=== PATIENT | female | born 1945 | race Caucasian/White ===

== ENCOUNTER → 2020-06-12 15:55 | Outpatient (CLI) | payer MEDICARE, OTHER, SELFPAY ==
--- NOTE | ~2020-06-12 | MM_ITS ---
EXAMINATION: MM screening talha BI w jose HISTORY: Screening TECHNIQUE: Craniocaudal and mediolateral oblique 3-D tomosynthesis images were obtained and synthetic 2-D images were generated. CAD analysis was submitted and interpreted. COMPARISON: Comparison to multiple prior studies sequentially, with oldest reviewed study dated 03/28. BREAST PARENCHYMAL COMPOSITION: There are scattered areas of fibroglandular density. FINDINGS: There is no evidence of suspicious mass, calcification, or architectural distortion to sugg est malignancy in either breast. There has been no suspicious interval change. IMPRESSION: 1. No mammographic evidence of malignancy. 2. Recommend routine screening mammography in one year. BI-RADS Category 1: Negative Reviewed, dictated and finalized at location A.
== END ==
PROVIDERS: PCP Family Medicine; Visit Provider Family Medicine
DX: Z12.31 Encounter for screening mammogram for malignant neoplasm of breast (principal)
CPT/HCPCS: 77063; 77067

== ENCOUNTER 2021-10-31 00:07 | Emergency (ER) | payer MEDICARE, OTHER, SELFPAY ==
--- NOTE | ~2021-10-31 | CT_ITS ---
EXAMINATION: CT abdomen pelvis w con INDICATION: Diarrhea and left lower quadrant pain TECHNIQUE: Computed tomographic images of the abdomen and pelvis were obtained after the administrati on of 100 cc of Omnipaque 350 intravenous contrast. The dose-length product (DLP) was 619.62 mGy-cm. Automated exposure control and iterative reconstruction technique were employed. COMPARISON: 01/17/2012 FINDINGS: Minimal dependent atelectasis is present in the lung bases. The heart size is normal. There is a 6 mm cyst of the left hepatic lobe. The spleen, pancreas, gallbladder, and adrenal glands are n ormal. There is a 7 mm stone left distal ureter which causes moderate left hydroureteronephrosis. The re are multiple nonobstructing stones of the right kidney which measure up to 6 mm. Multiple nonobstr ucting stones of the left kidney measure up to 4 mm. There is calcified atherosclerosis of the aorta and many of the other arteries. No pathologically enlarged abdominal or pelvic lymph nodes are identi fied. There is no free intraperitoneal gas or evidence of bowel obstruction. There is severe lumbar s pondylosis. IMPRESSION: 1. 7 mm stone of the left distal ureter causing moderate left hydroureteronephrosis. 2. Nonobstructing bilateral nephrolithiasis. Reviewed, dictated and finalized at location A. RVISOR HARDBOARD IMPRESSION: 1. 7 mm stone of the left distal ureter causing moderate left hydroureteronephr osis. 2. Nonobstructing bilateral nephrolithiasis.
[2021-10-31 00:06] VITALS: BP 184/91; PULSE 80; RESP 16; TEMP 37.3; O2SAT 100
--- NOTE | 2021-10-31 00:24 | ED.ABDPAIN ---
HPI - Abdominal Pain General Chief Complaint: Abdominal Pain Stated Complaint: LLQ ABD PAIN , DIARRHEA SINCE SEP Time Seen by Provider: 10/31/21 00:09 Source: patient Mode of arrival: EMS Limitations: no limitations History of Present Illness HPI narrative: This is a 75-year-old female that presents to the emergency department for left lower quadrant abdominal pain. Ongoing over the last couple of hours. Reports she has been having trouble with diarrhea since September. Reports her stools have been dark. She is not currently on any blood thinners. She is currently being evaluated by GI for this. Reports history of kidney stones. Denies fever, vomiting, dysuria, hematuria. Related Data Home Medications Medication Instructions Recorded Confirmed rosuvastatin [Crestor] 10 mg PO DAILY 10/31/21 10/31/21 Allergies Allergy/AdvReac Type Severity Reaction Status Date / Time amoxicillin Allergy Unknown Blistery Verified 10/31/21 00:25 Rash, GOOFY clavulanic acid Allergy Unknown Blistery Verified 10/31/21 00:25 Rash, GOOFY fentanyl AdvReac Severe ITCHEY RASH Verified 10/31/21 00:19 Review of Systems Review of Systems: CONSTITUTIONAL: Denies fever GASTROINTESTINAL: Reports abdominal pain, nausea, and diarrhea. Denies vomiting GENITOURINARY: Denies dysuria or hematuria. All systems reviewed & are unremarkable except as noted in HPI and below PMFSH Past Medical History Medical History (Updated 10/31/21 @ 02:35 by Sabrina Hill PA-C) History of hyperlipidemia Social History Social History (Updated 10/31/21 @ 00:26 by Sabrina Hill PA-C) Smoking status: Former smoker Exam Narrative: GENERAL: Elderly, well-nourished, and in no acute distress. HEAD: Normocephalic, atraumatic. CHEST: Clear to auscultation. No respiratory distress. No wheezes rales or rhonchi HEART: Regular rate and rhythm. No murmur heard. Normal peripheral pulses. ABDOMEN: Soft, nondistended, normal active bowel sounds. Tender to palpation in the left lower quadrant, without guarding. No CVA tenderness EXTREMITIES: Normal range of motion. No edema. SKIN: Warm, dry, no rash. NEURO: No focal deficits. Alert and oriented x3. PSYCH: Normal mood and affect Course Consultations Consultation #1: Spoke with Dr. Carreno about patient and work-up. Patient will be sent with Flomax, pain medication and is to follow-up in clinic. Date: 10/31/21 Time: 02:45 Vital Signs Vital signs: Vital Signs Temperature 99.1 F 10/31/21 00:06 Pulse Rate 80 10/31/21 00:06 Respiratory Rate 16 10/31/21 00:06 Blood Pressure 184/91 H 10/31/21 00:06 Pulse Oximetry 100 10/31/21 00:06 Temperature 99.1 F 10/31/21 00:06 Pulse Rate 68 10/31/21 01:28 Respiratory Rate 12 10/31/21 01:28 Blood Pressure 152/73 H 10/31/21 01:28 Pulse Oximetry 99 10/31/21 01:28 MDM - Abdominal Pain MDM Narrative Medical decision making narrative: Patient presents to the emergency department for left lower quadrant abdominal pain. She is afebrile and nontoxic-appearing. Blood pressure elevated on arrival, this down trended with management of pain. CBC is without leukocytosis. Metabolic panel with evidence of mild dehydration. Patient hydrated with IV fluids in the ED. UA without evidence of infection. Does show 21-[address] scan of the abdomen pelvis shows a left distal 7 mm ureteral stone with moderate hydroureteronephrosis. Spoke with Dr. Carreno about patient and work-up. Patient will be sent with Flomax, pain medication and is to follow-up in clinic. Patient is stable and felt appropriate for further outpatient evaluation. She was given warnings to return to the ER Lab Data Attestation: I reviewed the patient's lab results. Result diagrams: 10/31/21 00:25 10/31/21 00:25 Labs: Lab Results 10/31/21 10/31/21 10/31/21 Range/Units 00:25 00:25 00:44 WBC 5.2 (4.5-10.0) K
[2021-10-31 00:33] LABS: Basophils Absolute Auto 0.1 K/mm3 (0.0-0.1); Eosinophils Absolute Auto 0.1 K/mm3 (0-0.3); Hematocrit 39.7 % (37.0-47.0); Hemoglobin 13.3 g/dL (12.0-15.0); Immature Granulocyte Absolute 0.01 K/mm3 (0.00-0.031); Immature Granulocyte Percent A 0.2 % (0-0.5); Lymphocytes Absolute Auto 2.14 K/mm3 (0.9-3.2); Lymphocytes Percent Auto 41.2 % (18.3-44.2); Mean Corpuscular HGB Conc 33.5 g/dl (32-36); Mean Corpuscular Volume 89.4 fl (80-100); Mean Platelet Volume 9.7 fl (7.4-10.4); Monocytes Absolute Auto 0.5 K/mm3 (0.1-0.6); Monocytes Percent Auto 10.4 % (2.6-8.5); Neutrophils Absolute Auto 2.4 K/mm3 (1.3-6.7); Neutrophils Percent Auto 46.2 % (45.5-73.1); Platelet Count Result 196 k/mm3 (150-375); Red Blood Count 4.44 M/mm3 (4.2-5.4); Red Cell Distribution Width 13.8 % (11.5-14.5); White Blood Count 5.2 K/mm3 (4.5-10.0)
[2021-10-31] MEDS: PANTOPRAZOLE SODIUM IV 40 MG VIAL IV PUSH (00:49)
[2021-10-31] MEDS: MORPHINE SULFATE (*CRX) 2 MG/ML INJ IV PUSH (00:49)
[2021-10-31 01:02] LABS: Alanine Aminotransferase 16 U/L (4-35); Albumin Level 3.9 g/dL (3.5-5.1); Alkaline Phosphatase 83 U/L (38-126); Anion Gap 7 mmol/L (8-16); Aspartate Amino Transferase 28 U/L (14-36); Bilirubin,Total 0.3 mg/dL (0.2-1.3); Blood Urea Nitrogen 29 mg/dL (7-17); Carbon Dioxide 25 mmol/L (22-30); Chloride 109 mmol/L (98-107); Estimated CRCL calculation 66 ml/min; Estimated Glomerular Filt Rate > 60; Glucose 106 mg/dL (65-110); Lipase 83 U/L (23-300); Potassium 3.5 mmol/L (3.4-5.0); Sodium 141 mmol/L (137-145)
[2021-10-31 01:04] LABS: Add Urine Microscopic? YES; Appearance Urine Clear (Clear); Bilirubin Urine Negative (Negative); Blood Urine 1+ (Negative); Calcium Oxalate Crystals Urine Present /hpf; Color Urine Straw (Yellow); Glucose Urine UA Negative (Negative); Ketones Urine 1+ mg/dL (Negative); Leukocyte Esterase Ur Negative LEU/UL (Negative); Mucus Urine Rare /lpf; Nitrate Urine Negative (Negative); Protein Urine Negative (Negative); RBC Urine 21-50 /hpf (0-2); Specific Grav Ur 1.014 (1.001-1.035); Squamous Epithelial Cell Urine Rare /hpf (Few); Urobilinogen Urine Negative mg/dL (<2.0); WBC Urine 0-3 /hpf
[2021-10-31] MEDS: SODIUM CHLORIDE 0.9% IV 1,000 ML 999 ML IV CONT (01:26)
[2021-10-31 01:28] VITALS: BP 152/73; PULSE 68; RESP 12; O2SAT 99
[2021-10-31 02:56] VITALS: BP 145/71; PULSE 78; RESP 14; O2SAT 100
== END 2021-10-31 02:57 | disposition home or self-care (01) ==
PROVIDERS: Physician Assistant; Emergency Provider Emergency Medicine; PCP Family Medicine
DX: N13.2 Hydronephrosis with renal and ureteral calculous obstruction (principal); Z87.442 Personal history of urinary calculi; E78.5 Hyperlipidemia, unspecified; Z87.891 Personal history of nicotine dependence
CPT/HCPCS: 36415; 74177; 80053; 81001; 83690; 85025; 96374; 96375; 99284; C9113; J0131; J2270; J7030; Q9967

== ENCOUNTER 2021-11-09 01:58 | Day surgery (SDC) | payer MEDICARE, OTHER, SELFPAY ==
--- NOTE | 2021-11-08 13:24 | WPDANESEPPF ---
Anes - Initial Pre Proc Eval Procedure: Operation Date: 11/09/21 11:00 Proposed Procedures p Cystoscopy, Left Ureteroscopy, Left Stone Extraction, Possible Left Retrograde Pyelogram, Possible Left Stent Placement, - Go Glover MD s Possible Holmium Laser Procedure - Go Glover MD Date/Time: 11/08/21 13:24 Surgeon: Go Glover MD Pre Op Diagnosis: left ureteral stone Patient Data Age: 75 Gender: F Height: Weight: Allergies Allergy/AdvReac Type Severity Reaction Status Date / Time amoxicillin Allergy Unknown Blistery Verified 11/09/21 09:23 Rash, GOOFY clavulanic acid Allergy Unknown Blistery Verified 11/09/21 09:23 Rash, GOOFY fentanyl AdvReac Severe ITCHEY RASH Verified 11/09/21 09:23 Home Medications Medication Instructions Recorded Confirmed Type hydrocodone-acetaminophen 1 tablet PO Q6H PRN #20 tablet 10/31/21 11/09/21 Rx rosuvastatin [Crestor] 10 mg PO HS 10/31/21 11/09/21 History ciprofloxacin HCl 500 mg PO BID 11/08/21 11/09/21 History escitalopram oxalate 20 mg PO DAILY 11/08/21 11/09/21 History tamsulosin 0.4 mg PO HS 11/08/21 11/09/21 History Patient hx anesthesia problems: none Family hx anesthesia problems: none Results Review: All pre-operative results and documents have been reviewed as part of the pre-operative evaluation. [facility] Past Medical History Medical History (Updated 11/01/21 @ 00:00 by Cassy Bautista) History of hyperlipidemia Social History Social History (Updated 10/31/21 @ 00:26 by Sabrina Hill PA-C) Smoking status: Never smoker Living arrangements: with family Spiritual care concerns: No Anes - Eval Final PreProcedure Day of Procedure 11/08/21 13:24 Patient weight: normal Heart: regular rate and rhythm Lungs: clear to auscultation Airway: Mallampati scale class II Neurological: alert and oriented Last oral intake: >/= 8 hours ASA classification: II Emergent: no Anesthetic plan: proceed Anesthesia type and monitoring: general LMA and standard monitoring Results Review: All pre-operative results and documents have been reviewed as part of the pre-operative evaluation. Informed Consent: The patient's anesthetic plan and its attendant risks and benefits were discussed with the patient/family/POA. Questions were solicited and answers provided to the satisfaction of the patient/family/POA.
--- NOTE | 2021-11-08 15:50 | PC.NURSE ---
Addendum entered by Alma Delia Pickard RN 11/08/21 15:54: TAKE CIPRO MORNING OF SURGERY Original Note: Report to the Outpatient Waiting Room, entrance under the green pavilion located off [facility], at time _0800 on date __11/09/21 . OR Time: __1000 . - You and your visitor will be asked a series of questions to screen for COVID 19 for your protection. - A mask is required within the hospital. Preoperative COVID Testing Requirements: No COVID Test needed if: (proof is required; if not received patient will have Rapid Test prior to entry) - Patient has received COVID Vaccine at least 14 days prior to procedure date or - Patient has positive COVID test result within last 90 days of surgery date. COVID Test needed if above criteria is not met If not COVID vaccinated a COVID test must be conducted within 72 hours of surgery and patient is asked to isolate self from time of testing until procedure. You will go to the [facility] for your COVID testing. The [facility] site is located at the corner of [address] [facility]. You will only be called if COVID results are positive and your surgeon may reschedule your elective surgery date. Patients may have clear liquids (water, carbonated beverages, clear teas, apple juice) until 3 hours prior to surgery with a maximum of 20 ounces. - No food from midnight until time of surgery - Infants may have breast milk until 4 hours before surgery, formula 6 hours prior to surgery. - Children will be allowed to drink immediately following surgery. If applicable, please bring a bottle or sippy cup to assist with drinking. Juice, water, soda, and popsicles are readily available. For infants on formula, please bring formula the day of surgery. Pacifiers are allowed. Take the following medications with a SIP of water the morning of surgery: __ESCITALOPRAM Medications to discontinue per physician NONE Date to take last dose Please no make-up, nail djiboutian, hairspray, perfume, deodorant, or body powder the day of surgery. No jewelry (including any body piercings) or valuables the day of surgery, leave them at home. Please take a shower or bath the night before, or the morning of, surgery with an antibacterial soap. Wear comfortable, loose fitting clothing. Children are encouraged to wear pajamas. - Jewelry must be removed prior to entering the operating room. Rings and piercings that are not removed may be cut off. - The hospital will not accept responsibility for valuables. - Please leave all valuables, including medications, at home the day of surgery. If you are going home after surgery, a licensed heavy truck driver must drive you home. - NO public transportation without another adult. - We recommend that an adult stay with you for 24 hours following discharge. - We also recommend that you do not drive, make important decision, drink alcoholic beverages, or take any drugs that were not prescribed by your health care provider for at least 24 hours after your discharge time. For Pediatric surgeries, we recommend two adults accompany the child home (only one inside the building at this time). One visitor will be allowed to accompany the patient into the hospital. Patients visitor will be instructed to remain with patient at all times or leave the building. We will allow the visitor to come back to the postoperative area when patient is ready. Follow any additional instructions given to you from your surgeon. Telephone instructions given to __PATIENT and asked if any additional questions and then verbalized understanding. Patient advised to call surgeon office or pre surgery nurse liaison [phone] if any additional questions.
[2021-11-08 15:55] VITALS: BMI 22.6
[2021-11-09] VITALS (7 sets, daily range): BP systolic 122–183; BP diastolic 66–88; PULSE 55–70; RESP 11–20; TEMP 36.2; O2SAT 100
--- NOTE | ~2021-11-09 | XR_ITS ---
EXAMINATION: XR retrograde pyelo w/stent LT DATE: 11/09/2021 11:46 INDICATION: Left ureteral stone. TECHNIQUE: 3 intraoperative fluoroscopic views of the abdomen and pelvis were obtained. I was not pre sent. Fluoroscopy exposure time was 20 seconds. COMPARISON: CT abdomen and pelvis 10/31/2021 FINDINGS: The left-sided retrograde pyelogram demonstrates moderate hydronephrosis and hydroureter. T he final images demonstrate a left internal ureteral stent in expected position. IMPRESSION: 1. Moderate left hydronephrosis and hydroureter with internal ureteral stent in expected position. Reviewed, dictated and finalized at location A. RAL LABOR
--- NOTE | 2021-11-09 08:28 | ECG_ITS ---
Measurements Intervals [place] Rate: 62 P: 62 DC: 163 QRS: 56 QRSD: 101 T: 61 QT: 457 QTc: 467 Interpretive Statements SINUS RHYTHM NORMAL EKG NO PREVIOUS ECG AVAILABLE FOR COMPARISON Electronically Signed On 11-09-2021 10:36:18 PCA by Mohan Webb M.D.
[2021-11-09] MEDS: LACTATED RINGERS 1,000 ML 30 ML IV CONT (10:02)
--- NOTE | 2021-11-09 10:45 | WPDHPUPDATE1 ---
History and Physical Update Update Date/Time: 11/09/21 10:45 History and Physical has been reviewed, including an updated exam of the patient. There are NO changes in the patient's condition. Risks, benefits, and alternatives have been discussed and questions answered. Patient agrees to proceed with procedure. Proceed with cystoscopy, left retrograde pyelogram, left ureteroscopy with possible holmium laser, stone extraction, stent placement
[2021-11-09] MEDS: ceFAZolin 2 GM/D5W 50 ML 2 GM/50 ML BAG IVPB (11:12)
[2021-11-09] MEDS: LIDOCAINE HCL 2% GEL UROJET 10 ML PKG MUCOUS MEM (11:40)
--- NOTE | 2021-11-09 11:45 | W.PM.PROC2 ---
Procedure Note - Detailed Date of Procedure 11/09/21 Pre-op Diagnosis left ureteral stone Post-op Diagnosis Same Procedure Performed Cystoscopy, left retrograde pyelogram, left ureteroscopy with stone extraction, left ureteral stent placement 4.8 Greenlandic contour Surgeon Go Glover MD Anesthesia General Description of Procedure Patient is taken the operative suite correctly identified. Once anesthesia was obtained she was placed in dorsal lithotomy position and prepped and draped usual sterile fashion. Twenty-two Greenlandic scope was inserted the bladder. There is no tumors noted. Both ureteral orifices normal anatomic position. Left ureteral orifice was cannulated with a guidewire. Rigid ureteral scope was inserted in. The stone was visualized. It was somewhat jagged in appearance but simply with placement of the escape basket it broke up into multiple pieces. We thus retrieve these and sent for analysis. Reinspection of the ureter reveals some urethral irritation. At this point we decided to do a pyelogram and placed a stent. 4.8 Greenlandic contour stent was then placed with the proximal end in the renal pelvis and the distal end in the bladder. 2% viscous lidocaine was inserted urethra. Patient is taken recovery stable condition. She will follow up in 2 weeks for stent removal. Drains Yes Packing No Pathology Yes Complications No immediate complications Condition Stable Disposition PACU
== END 2021-11-09 13:38 | disposition home or self-care (01) ==
PROVIDERS: PCP Family Medicine; Visit Provider Urology
PROC: (CPT 52352; principal; 2021-11-09 11:00)
DX: N13.2 Hydronephrosis with renal and ureteral calculous obstruction (principal); J44.9 Chronic obstructive pulmonary disease, unspecified; E78.00 Pure hypercholesterolemia, unspecified
CPT/HCPCS: 52332; 52352; 74420; 82365; 88300; 93005; A9270; C1769; C1887; C2617; J0690; J1100; J1200; J2405; J2704; J3010; J7120; Q9966

== ENCOUNTER → 2023-05-19 16:19 | Outpatient (CLI) | payer MEDICARE, OTHER, SELFPAY ==
--- NOTE | ~2023-05-19 | XR_ITS ---
Left foot Technique: AP, oblique, and lateral views were obtained. Clinical History: Pain Findings: No acute fracture or dislocation is seen. There is orthopedic fusion hardware transfixing t he second and third PIP joints. There is additional orthopedic plate and screws at the first metatars al with presumed underlying osteotomy. Remaining osseous structures are intact. Remaining joint space s are intact. Soft tissues are unremarkable. Impression: First metatarsal with hardware the presumed underlying osteotomy, visible as a linear lucency. Correl ate with timeframe of the surgery. Fracture is a potential alternative consideration. Orthopedic fusion of the second and third PIP joints. Reviewed, dictated and finalized at location M. Impression: First metatarsal with hardware the presumed underlying osteotomy, visible as a linear lucency. Correlate with timeframe of the surgery. Fracture is a potentia l alternative consideration. Orthopedic fusion of the second and third PIP joints.
== END ==
PROVIDERS: PCP Family Medicine; Visit Provider Nurse Practitioner Family
DX: M79.672 Pain in left foot (principal)
CPT/HCPCS: 73630

== ENCOUNTER → 2023-05-23 09:41 | Outpatient (CLI) | payer MEDICARE, OTHER, SELFPAY ==
--- NOTE | ~2023-05-23 | CT_ITS ---
EXAMINATION: CT LE LT wo con DATE: 05/23/2023 10:06 INDICATION: Left foot pain. TECHNIQUE: Computed tomography (CT) of the left foot was performed without intravenous contrast. Auto mated exposure control and iterative reconstruction technique were employed. The dose-length product was 278.15 mGy-cm. COMPARISON: Left foot radiographs 05/19/2023 FINDINGS: There are changes of bunionectomy. There is a staple in first metatarsal. There is a plate with screws in first metatarsal. No fracture. There are arthrodesis procedures of the second and thir d proximal interphalangeal joints with instrumentation. No lucency to suggest loosening or infection. The instrumentation at third proximal interphalangeal joint extends 1 mm into the base of third dist al phalanx. The heads of the fourth and fifth proximal phalanges are small which may be from prior corrigan rgery or trauma. There is mild osteoarthritis of second tarsometatarsal joint and first metatarsophal angeal joint. There is osteoarthritis of many of the interphalangeal joints. There are enthesophytes at the posterior and plantar aspects of calcaneal tuberosity. IMPRESSION: 1. Polyarticular osteoarthritis. 2. Bunionectomy. 3. Arthrodesis procedures of second and third proximal interphalangeal joints. Note that the instrume ntation at the third proximal interphalangeal joint extends into the base of third distal phalanx. Reviewed, dictated and finalized at location A. IMPRESSION: 1. Polyarticular osteoarthritis. 2. Bunionectomy. 3. Arthrodesis procedures of second and third proximal interphalangeal joints. Note that the instrumentation at the third proximal interphalangeal joint exten ds into the base of third distal phalanx.
== END ==
PROVIDERS: PCP Family Medicine; Visit Provider Nurse Practitioner Family
DX: M19.072 Primary osteoarthritis, left ankle and foot (principal)
CPT/HCPCS: 73700

== ENCOUNTER → 2023-07-03 16:16 | Outpatient (CLI) | payer MEDICARE, OTHER, SELFPAY ==
--- NOTE | ~2023-07-03 | XR_ITS ---
EXAMINATION: XR lumbar spine 2-3V DATE: 07/03/2023 16:48 INDICATION: Low back pain TECHNIQUE: Anteroposterior and lateral views of the lumbar spine, and cone-down lateral view of the l umbosacral junction were obtained. COMPARISON: CT, 10/31/2021 FINDINGS: Bone alignment is normal. There is no fracture. There is severe loss of intervertebral disc space height at L4-5. There is moderate loss of disc space height throughout the remainder of the faustino mbar spine. Small degenerative osteophytes project from the anterior endplates of multiple vertebral bodies. The vertebral body heights are maintained. There is moderate facet joint osteoarthritis of th e lower lumbar spine. Calcified atherosclerosis is noted. IMPRESSION: 1. Severe lumbar spondylosis without acute findings. Reviewed, dictated and finalized at location F.
== END ==
PROVIDERS: PCP Family Medicine; Visit Provider Anesthesiology Pain Medicine
DX: M47.896 Other spondylosis, lumbar region (principal)
CPT/HCPCS: 72100

== ENCOUNTER → 2023-08-28 11:02 | Outpatient (CLI) | payer MEDICARE, OTHER, SELFPAY ==
--- NOTE | ~2023-08-28 | MR_ITS ---
MRI of the lumbar spine Clinical History: Spinal stenosis Technique: Axial T2-weighted images, and sagittal T1-weighted, T2-weighted, and T2 fat-sat images wer e acquired. COMPARISON: 05/01/2011 Findings: There is no fracture or subluxation of the lumbar spine. Vertebral bodies maintain normal h eight and alignment. No suspicious bone marrow signal abnormality seen. At L1-L2, there is no disc bulge or herniation. There is minimal facet arthropathy. No central canal stenosis or neural foraminal narrowing. At L2-L3, there is minimal disc bulge with mild to moderate facet arthropathy. No central canal steno sis. There is mild bilateral neural foraminal narrowing. At L3-L4, there is disc bulge and moderate facet arthropathy. No central canal stenosis. There is mod erate bilateral neural foraminal narrowing. At L4-L5, there is diffuse disc bulge, essentially the right paracentral to right foraminal region, w ith moderate to advanced facet arthropathy. There is mild central canal stenosis. There is severe meena ateral neural foraminal compromise, left worse than right. At L5-S1, there is diffuse disc bulge and moderate to advanced facet arthropathy. No central canal st enosis. There is severe bilateral neural foraminal, or mass. Paravertebral soft tissues are unremarkable. Impression: Severe degenerative spondylosis at L4-L5 and L5-S1, as detailed above. [id number] degenerative spondylosis of the upper lumbar spine. Reviewed, dictated and finalized at [facility]. ER HELPER Impression: Severe degenerative spondylosis at L4-L5 and L5-S1, as detailed above. [id number] degenerative spondylosis of the upper lumbar spine.
== END ==
PROVIDERS: PCP Family Medicine; Visit Provider Family Medicine
DX: R20.2 Paresthesia of skin (principal); M48.061 Spinal stenosis, lumbar region without neurogenic claudication; I10 Essential (primary) hypertension; M47.896 Other spondylosis, lumbar region; M47.897 Other spondylosis, lumbosacral region
CPT/HCPCS: 72148

== ENCOUNTER → 2023-10-28 09:05 | Outpatient (CLI) | payer MEDICARE, OTHER, SELFPAY ==
--- NOTE | ~2023-10-28 | XR_ITS ---
EXAMINATION: XR thoracic spine 3V DATE: 10/28/2023 09:21 INDICATION: Thoracic back pain TECHNIQUE: AP, lateral and lateral swimmer's views of the thoracic spine were obtained. COMPARISON: None. FINDINGS: Bone alignment is normal. There is no fracture. There is moderate loss of intervertebral di sc space height throughout the thoracic spine. Vertebral body heights are maintained. Small degenerat ken osteophytes project from the anterior endplates of multiple vertebral bodies. IMPRESSION: 1. Moderate to severe thoracic spondylosis without acute findings. Reviewed, dictated and finalized at location L. ER HELPER
== END ==
PROVIDERS: PCP Family Medicine; Visit Provider Nurse Practitioner Family
DX: M43.04 Spondylolysis, thoracic region (principal); M54.6 Pain in thoracic spine
CPT/HCPCS: 72072

== ENCOUNTER 2024-10-15 08:18 | Outpatient (CLI) | payer MEDICARE, OTHER, SELFPAY ==
--- NOTE | ~2024-10-15 | XR_ITS ---
EXAMINATION: XR abdomen/kub 1V DATE: 10/15/2024 08:43 INDICATION: Possible kidney stone TECHNIQUE: A supine view of the abdomen on 2 radiographs was obtained. COMPARISON: 04/19/2019 FINDINGS: 6 mm stone projecting over the lower pole of the left kidney, 4 mm stone projecting over the mid left kidney and 3 mm stone projecting over the upper pole the left kidney. There are few smaller densitie s projecting over the lower poles of both kidneys more equivocal for additional stones versus debris within the fecal stream. Chronic phleboliths in the pelvis. Large bone island projecting over the rig ht iliac wing. Normal bowel gas pattern. Lung bases are clear. Heart size is normal. Severe lower lum bar spondylosis. IMPRESSION: 1. Nephrolithiasis with 3 stones at the left kidney measuring between 3 10 6 mm and a few additional possible smaller stones at the lower poles of both kidneys. Reviewed, dictated and finalized at location B. TENANCE SERVICE TECHNICIAN IMPRESSION: 1. Nephrolithiasis with 3 stones at the left kidney measuring between 3 10 6 mm and a few additional possible smaller stones at the lower poles of both kidney s.
== END 2024-10-15 08:19 | disposition home or self-care (01) ==
LOC: MICIMG 08:21
PROVIDERS: PCP Family Medicine; Visit Provider Urology
DX: N20.0 Calculus of kidney (principal)
CPT/HCPCS: 74018

== ENCOUNTER 2024-10-18 01:10 | Observation (INO) | payer MEDICARE, OTHER, SELFPAY ==
[2024-10-18] VITALS (14 sets, daily range): BP systolic 129–173; BP diastolic 54–84; PULSE 67–102; RESP 12–20; TEMP 36.3–37.5; O2SAT 91–100; BMI 33.5
--- NOTE | ~2024-10-18 | XR_ITS ---
EXAMINATION: XR retrograde pyelo w/stent RT DATE: 10/18/2024 13:34 INDICATION: Right ureteral stone extraction TECHNIQUE: 48 fluoroscopic images of the abdomen and pelvis were obtained during procedure performed by Dr. Franklin. Radiologist was not present for the imaging or procedure. The amount of fluoroscopy t alana used during this procedure was 0.4 minutes. COMPARISON: CT dated 10/18/2024 FINDINGS: The mid right ureteral stone seen on prior CT is unable be identified on the activities director scouting fluoroscopic image s. Subsequent images demonstrate cannulation and retrograde contrast injection into the right ureter and renal collecting system which appear normal with no filling defects or strictures. A mobile gas-f illed which changes in size and morphology can be seen extending through the ureter during the course of the injection. Final images demonstrate placement of a right internal ureteral stent with loops f ormed in upper pole calyx of the right kidney and in the bladder. IMPRESSION: 1. Placement of a right internal ureteral stent in expected position. 2. The stone previously seen in the mid right ureter is unable be identified on the activities director scouting imaging or on the final images and may have either passed or been extracted. Correlate with procedure note for f urther detail. Reviewed, dictated and finalized at location A. EMIC VICE PRESIDENT IMPRESSION: 1. Placement of a right internal ureteral stent in expected position. 2. The stone previously seen in the mid right ureter is unable be identified on the activities director scouting imaging or on the final images and may have either passed or been ex tracted. Correlate with procedure note for further detail.
--- NOTE | ~2024-10-18 | CT_ITS ---
Non-contrast CT scan of the Abdomen and Pelvis Clinical indication: Kidney stone Technique: 2.5 mm axial scans were obtained through the abdomen and pelvis without intravenous or or al contrast. Dose reduction technique was used on this scan by utilizing automated exposure control a nd iterative reconstruction technique. The dose-length product (DLP) was 380.32 mGy-cm. Findings: Images through the lung bases reveal no abnormalities. There is an 8-9 mm stone at the mid right ureter (axial images [id number]), with moderate right hydrourete ronephrosis to this level. There are multiple additional bilateral nonobstructing renal stones presen t, measuring up to 8 mm in greatest diameter. No left ureteral stone or left hydronephrosis. The liver, spleen, pancreas, gallbladder, and adrenals appear normal. There is no aortic aneurysm. There is no evidence of bowel obstruction. Sigmoid diverticulosis noted. Images through the pelvis were performed. There is no evidence of ascites or lymphadenopathy. Urinary bladder unremarkable. No adnexal mass seen. Impression: 8-9 mm mid right ureteral stone with moderate right hydroureteronephrosis. Additional bilateral nonobstructing renal stones, as above. Reviewed, dictated and finalized at [facility]. L REGULATOR Impression: 8-9 mm mid right ureteral stone with moderate right hydroureteronephrosis. Additional bilateral nonobstructing renal stones, as above.
--- OUTSIDE RECORDS SUMMARY | 2024-10-18 01:14 | XMS_ITS ---
Author Organization [facility] Address [address] [place] [address] Care Team Providers Care Senior Warehouse Clerk Name Role Phone Jimmie Bingham Primary Care Provider UnavailDr. 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 Assessments Encounter Date Diagnosis (ICD Code) Assessment Notes Treatment Notes Treatment Clinical Notes Section Notes 07/17/2023 Other hereditary and idiopathic neuropathies (ICD-10 - 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) Plan Of Treatment Medication Medication Name Sig Start Date Stop Date Notes GABAPENTIN 300 mg 1 cap(s) tid with me als x 1 week, then 1 cap qid (tid with meals and qHS) if tolerated orally as directed for 30 days Progress Notes * Tasia RAYADOB: (77 yo F)Acc No.[id number]:07/17/2023 Patient: Max Tasia pryor :1945 A ge:77 Y S ex:Female Address:[address], [place] [address] * Refills Refill gabapentin capsule, 300 mg, orally, 120, 1 cap(s) tid with meals x 1 week, then 1 cap qid (tid with meals and qHS) if tolerated, as directed, 30 days, Refills=2 * true * Date: Generated for Yoni hathaway/Jennifer/Dieteritting on: 0 10/18/2024 01:14 AM ENGINEERING DIRECTOR
--- OUTSIDE RECORDS SUMMARY | 2024-10-18 01:14 | XMS_ITS | Clinical Summary ---
Author Organization [facility] Address [address] [place] [address] Care Team Providers Care Stadium Manager Name Role Phone Raphael Summers MD Primary Care Provider Allergies Active Allergy Reactions Criticality Noted Date Comments Amoxicillin-Pot Clavulanate Unknown 03/30/20 12 Fentanyl Unknown 03/30/2012 Medications escitalopram (LEXAPRO) 20 MG tablet Take 20 mg by mouth every morning. Active fluticasone propionate (FLONASE) 50 MCG/ACT nasal spray 1-2 sprays by Nasal route. Active LORazepam (ATIVAN) 0.5 MG tablet Take 0.5 mg by mouth. Active rosuvastatin (CRESTOR) 5 MG tablet Take 5 mg by mouth daily. Active aspirin EC 81 MG tablet Take 1 tablet by mouth daily. Active tamsulosin (FLOMAX) 0.4 MG Cap Take 0.4 mg by mouth nightly at bedtime. 2 Active donepezil (ARICEPT) 10 MG TabIndications:Cog nitive communication deficit,MCI (mild cognitive impairment) Take 1 tablet (10 mg total) by mouth nightly at bedtime. 90 tablet 1 3 Active gabapentin (NEURONTIN) 300 MG capsule Take 1 capsule (300 mg total) by mouth 3 (three) times daily. Active nortriptyline (PAMELOR) 10 MG capsule Take 2 capsules (20 mg total) by mouth nightly at bedtime. Active tamsulosin (FLOMAX) 0.4 MG Cap Take 1 capsule (0.4 mg total) by mouth daily for 7 days. 7 capsule 5 10/21/19 25 Active oxyCODONE-acetamin ophen (PERCOCET) 5-325 MG tabletIndications: Acute Pain < 3 Day Supply Take 1-2 tablets by mouth every 6 (six) hours as needed. Indications: Acute Pain < 3 Day Supply 15 tablet 5 10/17/19 25 ondansetron (ZOFRAN-ODT) 4 MG disintegrating tablet Take 1 tablet (4 mg total) by mouth every 8 (eight) hours as needed for Nausea. 12 tablet 5 10/17/19 25 Active Problems Problem Noted Date Diagnosed Date Peripheral neuropathy 12/03/2014 Overview (09/22/2022): Note: L4- L5 distribution and peronial nerve Date Onset: 11/2014 Spider veins 11/15/2014 Overview (09/22/2022): Date Onset: 11/15/2014 Hyperlipidemia 05/08/2012 Overview (09/22/2022): Date Onset: 05/08/2012 Allergic rhinitis 04/01/2012 Asthma ([facility]/HCC) 04/01/2012 Pain in joint 03/30/2012 Calculus of kidney 03/10/2012 Overview (09/22/2022): Note: bilateral nephrolithiasis Date Onset: 01/18/2012 Chronic obstructive pulmonary disease ([facility]/HCC H HS/HCC) 03/10/2012 Panic disorder (episodic paroxysmal anxiety) 11/2011 Stiffness of joint 03/10/2012 Encounters Date Type Department Care Team Description 10/13/2024 10:58 PM BUSINESS ADVISOR - 10/14/2024 1:27 AM [facility] Emergency [facility] Emergency Room [address] [place] [id number] Johny Pinon MD Flank Pain Discharge Disposition: Home or Self Care (Routine Discharge) 10/13/2024 Travel 10/05/2024 2:53 PM BUSINESS ADVISOR - 10/05/2024 11:59 PM BUSINESS ADVISOR Hospital Encounter [facility] [address] [place] [address], [place] [address] Raphael Summers MD Discharge Disposition: Home or Self Care (Routine Discharge) 10/05/2024 Travel from Last 3 Months Social History Tobacco Use Types Packs/Day Years Used Date Smoking Tobacco: Never Smokeless Tobacco: Never Tobacco Cessation:Counseling Given: No Alcohol Use Standard Drinks/Week Comments Not Currently 0 (1 standard drink = 0.6 oz pur e alcohol) PHQ-2 Answer Date Recorded Patient Health Questionnaire-2 Score 0 09/23/2022 Comments Unknown Sex and Gender Information Value Date Recorded Sex Assigned at Female 10/13/2024 11:27 PM BUSINESS ADVISOR Legal Sex Female 8:08 AM CDT Gender Identity Not on file Sexual Orientation Not on file Last Filed Vital Signs Vital Sign Reading Time Taken Comments Blood Pressure 186/86 10/14/2024 12:00 AM BUSINESS ADVISOR Pulse 78 10/13/2024 11:02 PM BUSINESS ADVISOR Temperature 37 C (98.6 F) 10/13/2024 11:02 PM BUSINESS ADVISOR Respiratory Rate 20 10/13/2024 11:02 PM BUSINESS ADVISOR Oxygen Saturation 99% 10/14/2024 12:00 AM BUSINESS ADVISOR Inhaled Oxygen Concentration - - Weight 72.6 kg (160 lb) 10/13/2024 11:02 PM BUSINESS ADVISOR Height 167.6 cm (5' 6 ) 10/13/2024 11:02 PM BUSINESS ADVISOR Body Mass Index 25.82 10/13/2024 11:02 PM BUSINESS ADVISOR Plan of Treatment Upcoming Encounters Date Type Department Care Team (Late st Contact Info) Description 02/14/2025 2:00 PM CDT Office Visit [facility] - [address], [address] [place] [address] Jack Alvares MD [address] [place] [address] Health Maintenance Due Date Last Done Comments Hepatitis C 12/08/1963 Annual Medicare Wellness Visit 12/08/2012 Pneumococcal Vaccine: 65+ Years (3 of 3 - PPSV23 or PCV20) 02/20/2017 02/21/2016, 12/18/2011 RSV Immunization or 60+ Years (1 - 1-dose 75+ series) 12/08/2022 COVID-19 Vaccine (3 - season) 2024 12/23/2020, 12/02/2020 Influenza Adult (#1) 2024 06/22/2019, 06/15/2018, 06/13/2017, Additional history exists PHQ-2 (Physician [place]) 09/08/2024 DTaP, Tdap and Td Vaccines (3 - Td or Tdap) 10/26/2029 10/26/2019, 05/15/2016, 11/26/2001 Zoster Vaccines Completed 03/01/2021, 10/26/2019 Dexa Scan (General) Completed 10/05/2024, 3 Meningococcal B Vaccine Aged Out No l onger eligible based on patient's age to complete this topic Meningococcal Vaccine Aged Out No belinda mell eligible based on patient's age to complete this topic RSV Immunizations Under 20 Months Aged Out No longer eligible based on patient's age to complete this topic Procedures Procedure Name Priority Date/Time Associated Diagnosis Comments URINE BACTERIA CULTURE STAT 10/14/2024 12:42 AM BUSINESS ADVISOR URINALYSIS, AUTO, COMPLETE STAT 10/14/2024 12:[address] ABD+PEL KIDNEY STONE STAT 10/13/2024 11:49 PM BUSINESS ADVISOR LIPASE STAT 10/13/2024 11:10 PM BUSINESS ADVISOR COMPREHENSIVE METABOLIC PANEL STAT 10/13/2024 11:10 PM BUSINESS ADVISOR CBC W/DIFF AUTOMATED STAT 10/13/2024 11:10 PM BUSINESS ADVISOR BONE DENSITY/DEXA Routine 10/05/2024 3:0 7 PM BUSINESS ADVISOR Osteoporosis, unspecified osteoporosis type, unspecified pathological fracture presence Asymptomatic menopausal state from Last 3 Months Results * CULTURE URINE (10/14/2024 12:42 AM BUSINESS ADVISOR) SPEC DESCRIPTION URINE CLEAN CATCH 10/14/2024 12:41 AM [facility] SPECIAL REQUESTS NO SPECIAL REQUEST 10/14/2024 12:41 AM [facility] CULTURE RESULT NO GROWTH 2 DAYS 10/16/2024 6:[address] [facility] URINE SPECIMEN OBTAINED BY CLEAN CATCH PROCEDURE / Unknown 10/14/2024 12:42 AM BUSINESS ADVISOR 10/14/2024 12:52 AM BUSINESS ADVISOR Johny Pinon MD MICROBIOLOGY - GENERAL BARBARA BIRD Final Result [facility] [address] [place] [address], [place] [phone] [facility] [address] [place] [address], [place] [phone] * (ABNORMAL) URINALYSIS, AUTO, COMPLETE (10/14/2024 12:42 AM BUSINESS ADVISOR) COLOR (U) YELLOW 10/14/2024 1:03 AM [facility] TRANSPARENCY CLOUDY 10/14/2024 1:03 AM [facility] SPECIFIC GRAVITY (U) 1.020 1.000 - 1.030 10/14/2024 1:03 AM [facility] U PH 7.5 5.0 - 9.0 10/14/2024 1:03 AM [facility] LEUKOCYTES (U) 1+(A) NEGATIVE 10/14/2024 1:03 AM [facility] NITRITES NEGATIVE NEGATIVE 10/14/2024 1:03 AM [facility] PROTEIN RANDOM (U) NEGATIVE NEGATIVE 10/14/2024 1:03 AM [facility] GLUCOSE (U) NEGATIVE NEGATIVE 10/14/2024 1:03 AM [facility] KETONES MG/DL (U) TRACE(A) NEGATIVE 10/14/2024 1:03 AM [facility] BILIRUBIN (U) NEGATIVE NEGATIVE 10/14/2024 1:03 AM [facility] BLOOD (U) 3+(A) NEGATIVE 10/14/2024 1:03 AM [facility] WBC/HPF 5-10 0 - 5 /HPF 10/14/2024 1:03 AM [facility] RBC/HPF 50-100 0 - 5 /HPF 10/14/2024 1:03 AM [facility] EPI/HPF FEW /HPF 10/14/2024 1:03 AM [facility] URINE SPECIMEN OBTAINED BY CLEAN CATCH PROCEDURE / Unknown 10/14/2024 12:42 AM BUSINESS ADVISOR us Johny Pinon MD URINE ORDERABLES Final Resu lt [facility] [address] [place] [address], [place] [phone] * CT ABD+PEL KIDNEY STONE (10/13/2024 11:49 PM BUSINESS ADVISOR) Anatomical Region Laterality Modality Abdomen Computed Tomogra phy 10/13/2024 11:5 0 PM BUSINESS ADVISOR Impressions 10/14/2024 12:01 AM BUSINESS ADVISOR IMPRESSION: 1. Mild right hydronephrosis with right perinephric stranding and a 6 mm stone in the proximal right ureter, suggestive of obstructive uropathy. 2. Multifocal nonobstructing stones involving the bilateral kidneys. 3. Sub-6 mm pulmonary nodule in the right lower lobe. Current Jo Society guidelines recommend no routine follow-up for patient's at low risk of lung cancer. Optional CT at 12 months for patient's at high risk. Referred By: Interpreted By: Patrick Crouch MD, 10/13/2024 11:50 PM Narrative 10/14/2024 12:01 AM BUSINESS ADVISOR [facility] [address] [place] [address] EXAMINATION: CT ABDOMEN/PELVIS WITHOUT CONTRAST INDICATION: right flank pain x 1 day COMPARISON: 07/24/2022 TECHNIQUE: Computed tomography of the abdomen, and pelvis was performed without administration of intravenous contrast. Sagittal and coronal reconstructions. Radiation dose reduction technique(s) were used. FINDINGS: Lower Chest: There are atelectatic changes in the lung bases. There is a sub-6 mm slightly linear pulmonary nodule in the right lung base (image 13) No cardiomegaly or pericardial effusion. Small hiatal hernia. Upper abdominal organs: There is a stable small cyst in the liver. No specific imaging follow-up is recommended. There is no splenomegaly. There is no peripancreatic inflammation. There is no definite cholelithiasis. There are no adrenal masses. There is mild right hydronephrosis with right perinephric stranding and a 6 mm stone in the proximal right ureter. There are multifocal nonobstructing stones involving the bilateral kidneys. Vascular: The abdominal aorta is normal in caliber. Lymph nodes: No retroperitoneal, mesenteric, or inguinal lymphadenopathy. Gastrointestinal: No bowel obstruction or bowel wall thickening. Colonic diverticulosis. The appendix is normal. Miscellaneous: No free intraperitoneal air or ascites. Pelvis: No free pelvic fluid. The urinary bladder is normal. The uterus and adnexa are within normal limits for noncontrast CT. Musculoskeletal: No acute osseous abnormality or destructive bone lesions. Procedure Note Patrick Crouch MD - 10/14/2024 [facility] [address] [place] [id number] EXAMINATION: CT ABDOMEN/PELVIS WITHOUT CONTRAST INDICATION: right flank pain x 1 day COMPARISON: 07/24/2022 TECHNIQUE: Computed tomography of the abdomen, and pelvis was performedwithout administration of intravenous contrast. Sagittal and coronalreconstructions. Radiation dose reduction technique(s) were used. FINDINGS: Lower Chest: There are atelectatic changes in the lung bases. There is asub-6 mm slightly linear pulmonary nodule in the right lung base ([id number]) No cardiomegaly or pericardial effusion. Small hiatal hernia. Upper abdominal organs: There is a stable small cyst in the liver. Nospecific imaging follow-up is recommended. There is no splenomegaly. Thereis no peripancreatic inflammation. There is no definite cholelithiasis.There are no adrenal masses. There is mild right hydronephrosis with rightperinephric stranding and a 6 mm stone in the proximal right ureter.There are multifocal nonobstructing stones involving the bilateralkidneys. Vascular: The abdominal aorta is normal in caliber. Lymph nodes: No retroperitoneal, mesenteric, or inguinallymphadenopathy. Gastrointestinal: No bowel obstruction or bowel wall thickening. Colonicdiverticulosis. The appendix is normal. Miscellaneous: No free intraperitoneal air or ascites. Pelvis: No free pelvic fluid. The urinary bladder is normal. The uterusand adnexa are within normal limits for noncontrast CT. Musculoskeletal: No acute osseous abnormality or destructive bonelesions. IMPRESSION: 1. Mild right hydronephrosis with right perinephric stranding and a 6 mmstone in the proximal right ureter, suggestive of obstructive uropathy. 2. Multifocal nonobstructing stones involving the bilateral kidneys. 3. Sub-6 mm pulmonary nodule in the right lower lobe. Current [facility] guidelines recommend no [facility]. [facility] Referred By: Interpreted By: Patrick Crouch MD, 10/13/2024 11:50 PM Johny Pinon MD CT Final Resul t * (ABNORMAL) COMPREHENSIVE METABOLIC PANEL (10/13/2024 11:10 PM BUSINESS ADVISOR) GLUCOSE 99 70 - 99 MG/DL 10/13/2024 11:36 PM BUSINESS ADVISOR [facility] BUN 26(H) 7 - 18 MG/DL 10/13/2024 11:36 PM [facility] CREATININE S/P/B 0.93 0.55 - 1.02 MG/DL 10/13/2024 11:36 PM [facility] SODIUM S/P/B 141 136 - 145 MMOL/L 10/13/2024 11:36 PM [facility] POTASSIUM S/P/B 3.7 3.5 - 5.1 MMOL/L 10/13/2024 11:36 PM [facility] CHLORIDE S/P/B 105 100 - 108 MMOL/L 10/13/2024 11:36 PM [facility] CO2 25.7 21 - 32 MMOL/L 10/13/2024 11:36 PM [facility] CALCIUM S/P/B 9.1 8.5 - 10.1 MG/DL 10/13/2024 11:36 PM [facility] BILIRUBIN TOTAL S/P/B 0.4 0.2 - 1.2 MG/DL 10/13/2024 11:36 PM [facility] TOTAL PROTEIN S/P/B 6.3(L) 6.4 - 8.2 G/DL 10/13/2024 11:36 PM [facility] ALBUMIN S/P/B 3.5 3.4 - 5.0 G/DL 10/13/2024 11:36 PM [facility] AST 23 15 - 37 U/L 10/13/2024 11:36 PM [facility] ALT 30 14 - 55 U/L 10/13/2024 11:36 PM [facility] ALKALINE PHOSPHATASE S/P/B 65 50 - 136 U/L 10/13/2024 11:36 PM [facility] ANION GAP 10.3 5 - 15 MMOL/L 10/13/2024 11:36 PM [facility] BUN CREATININE RATIO 28.0(H) 6 - 26 10/13/2024 11:36 PM [facility] A/G RATIO 1.2 1.0 - 2.0 RATIO 10/13/2024 11:36 PM [facility] GFR ESTIMATE 64(L) >90 ML/MIN/1.7 3 M2 10/13/2024 11:36 PM [facility] Comment: NOTE: eGFR is not calculated for patients <18 years of age. This is an estimated GFR calculation using the new CKD EPI creatinine equation without race and so does not require a correction factor for race. This estimated GFR should not be used for calculating drug doses. 10/13/2024 11:1 0 PM BUSINESS ADVISOR us Johny Pinon MD LABORATORY Final Resul t [facility] [address] [place] [address], [place] [phone] * (ABNORMAL) CBC W/DIFF AUTOMATED (10/13/2024 11:10 PM BUSINESS ADVISOR) WBC 7.10 4.4 - 11.0 x10'3/uL 10/13/2024 11:19 PM [facility] RBC 4.78 4.50 - 5.10 x10'6/uL 10/13/2024 11:19 PM [facility] HGB 14.1 12.3 - 15.3 G/DL 10/13/2024 11:19 PM [facility] HCT 42.6 35.9 - 44.6 % 10/13/2024 11:19 PM [facility] MCV 89.1 80.0 - 96.0 FL 10/13/2024 11:19 PM [facility] MCH 29.5 25.3 - 30.9 PG 10/13/2024 11:19 PM [facility] MCHC 33.1 31.0 - 34.1 G/DL 10/13/2024 11:19 PM [facility] RDW 13.7 12.4 - 15.1 % 10/13/2024 11:19 PM [facility] PLT 233 151 - 353 x10'3/uL 10/13/2024 11:19 PM [facility] MPV 8.8(L) 9.6 - 12.0 FL 10/13/2024 11:19 PM [facility] RBC MORPHOLOGY NORMAL 10/13/2024 11:19 PM [facility] PLT MORPH. NORMAL 10/13/2024 11:19 PM [facility] WBC MORPHOLOGY NORMAL 10/13/2024 11:19 PM [facility] LYMPHOCYTES % 23.2 15.8 - 45.0 % 10/13/2024 11:19 PM [facility] NEUTROPHILS % 67.5 42.1 - 71.9 % 10/13/2024 11:19 PM [facility] MONOCYTES % 6.9 5.7 - 12.5 % 10/13/2024 11:19 PM [facility] EOSINOPHILS 1.4 0.0 - 5.6 % 10/13/2024 11:19 PM [facility] BASOPHILS 0.7 0.0 - 1.3 % 10/13/2024 11:19 PM [facility] ABS. NEUTROPHILS 4.79 1.40 - 6.00 x10'3/uL 10/13/2024 11:19 PM [facility] IMMATURE GRANS % 0.3 0.0 - 0.5 % 10/13/2024 11:19 PM BUSINESS ADVISOR [facility] ABS. LYMPHOCYTES 1.65 0.80 - 4.70 x10'3/uL 10/13/2024 11:19 PM BUSINESS ADVISOR [facility] 10/13/2024 11:1 0 PM BUSINESS ADVISOR us Johny Pinon MD LABORATORY Final Resul t Performing Organization Address [facility] de Phone Number [facility] [address] [place] [address], [place] [phone] * LIPASE (10/13/2024 11:10 PM BUSINESS ADVISOR) LIPASE 35 16 - 77 UNITS/L 10/13/2024 11:36 PM BUSINESS ADVISOR [facility] 10/13/2024 11:1 0 PM BUSINESS ADVISOR us Johny Pinon MD LABORATORY Final Resul t Performing Organization Address [facility] de Phone Number [facility] [address] [place] [address], [place] [phone] * BONE DENSITY/DEXA (10/05/2024 3:07 PM BUSINESS ADVISOR) Anatomical Region Laterality Modality Bone Bone Density 10/05/2024 3:09 PM BUSINESS ADVISOR Impressions 10/05/2024 3:11 PM BUSINESS ADVISOR IMPRESSION: WHO Classification: osteopenia. Overall increased bone mineral density of the lumbar spine and left femoral neck compared to prior study. FRAX Score 10-year fracture risk: Major Osteoporotic Fracture: 12% Hip Fracture: 2.8% Ordered By: RAPHAEL SUMMERS Interpreted By: Micah Foley MD, 10/05/2024 3:09 PM Narrative 10/05/2024 3:11 PM BUSINESS ADVISOR [facility] [address] [place] [address] Examination: Bone Density Axial Exam Date/Time: 10/05/2024 2:57 PM Reason For Exam: Postmenopausal screening. Comparison DEXA: 10/11/2022. Findings: DEXA bone densitometry The bone mineral density (BMD) was determined by dual-energy x-ray absorptiometry, the results are as follows: AP Lumbar Spine L2 through L4 BMD Patient (GM/SQCM): 0.887 T-Score (Standard deviations from young adult peak bone density): -1.7 (Previous T score: -2.2) Left femoral neck: BMD Patient (GM/SQCM): 0.669 T-Score (Standard deviations from young adult peak bone density): -1.6 (Previous T score: -1.9) Total left femur: BMD Patient (GM/SQCM): 0.822 T-Score (Standard deviations from young adult peak bone density): -1.0 (Previous T score: not available) Right femoral neck: BMD Patient (GM/SQCM): 0.688 T-Score (Standard deviations from young adult peak bone density): -1.5 (Previous T score: not available) Total right femur: BMD Patient (GM/SQCM): 0.789 T-Score (Standard deviations from young adult peak bone density): -1.3 (Previous T score: not available) Recommendations: All patients should ensure an adequate intake of dietary calcium and vitamin D. The NOF recommend adults under the age of 50 need 1000 mg of calcium and 400-800 IU of vitamin D daily. Effective therapy for the prevention and treatment of osteoporosis include biphosphonates. Follow-up: People with diagnosed cases of osteoporosis or at high risk for fracture should have regular bone mineral density test. For patients eligible for Medicare, routine testing is allowed once every 2 years. Testing frequency can be increased to one year for patients who have rapidly progressing disease, those who are receiving or discontinuing medical therapy to restore bone mass, or have additional risk factors. Procedure Note Micah Foley MD - 10/05/2024 [facility] [address] [place] [address] Examination: Bone Density Axial Exam Date/Time: 10/05/2024 2:57 PM Reason For Exam: Postmenopausal screening. Comparison DEXA: 10/11/2022. Findings: DEXA bone densitometry The bone mineral density (BMD) was determined bydual-energy x-ray absorptiometry, the results are as follows: AP Lumbar Spine L2 through L4 BMD Patient (GM/SQCM): 0.887 T-Score (Standard deviations from young adult peak bonedensity): -1.7 (Previous T score: -2.2) Left femoral neck: BMD Patient (GM/SQCM): 0.669 T-Score (Standard deviations from young adult peak bonedensity): -1.6 (Previous T score: -1.9) Total left femur: BMD Patient (GM/SQCM): 0.822 T-Score (Standard deviations from young adult peak bonedensity): -1.0 (Previous T score: not available) Right femoral neck: BMD Patient (GM/SQCM): 0.688 T-Score (Standard deviations from young adult peak bonedensity): -1.5 (Previous T score: not available) Total right femur: BMD Patient (GM/SQCM): 0.789 T-Score (Standard deviations from young adult peak bonedensity): -1.3 (Previous T score: not available) Recommendations: All patients should ensure an adequate intake of dietary calcium andvitamin D. The NOF recommend adults under the age of 50 need 1000 mg ofcalcium and 400-800 IU of vitamin D daily. Effective therapy for theprevention and treatment of osteoporosis include biphosphonates. Follow-up: People with diagnosed cases of osteoporosis or at high risk for fractureshould have regular bone mineral density test. For patients eligible forMedicare, routine testing is allowed once every 2 years. Testing frequencycan be increased to one year for patients who have rapidly progressingdisease, those who are receiving or discontinuing medical therapy torestore bone mass, or have additional risk factors. IMPRESSION: WHO Classification: osteopenia. Overall increased bone mineral density ofthe lumbar spine and left femoral neck compared to prior study. FRAX Score 10-year fracture risk: Major Osteoporotic Fracture: 12% Hip Fracture: 2.8% Ordered By: RAPHAEL SUMMERS Interpreted By: Micah Foley MD, 10/05/2024 3:09 PM Raphael Summers MD DEXA Final Result from Last 3 Months Insurance MEDICARE [facility] Advance Directives Documents on File Type Date Recorded Patient Net Programmer Analyst Expl anation Advance Directives and Living Will 11/17/2014 12:00 AM ADVANCED DIRECTIVES Advance Directives and Living Will 11/11/2014 12:00 AM ADVANCED DIRECTIVES Advance Directives and Living Will 08/18/2014 12:00 AM ADVANCED DIRECTIVES Advance Directives and Living Will 05/25/2014 12:00 AM ADVANCED DIRECTIVES Advance Directives and Living Will 05/10/2014 12:00 AM ADVANCED DIRECTIVES Advance Directives and Living Will 11/11/2013 12:00 AM ADVANCED DIRECTIVES Advance Directives and Living Will 11/04/2013 12:00 AM ADVANCED DIRECTIVES Advance Directives and Living Will 09/30/2013 12:00 AM ADVANCED DIRECTIVES Advance Directives and Living Will 09/09/2013 12:00 AM ADVANCED DIRECTIVES Advance Directives and Living Will 08/24/2013 12:00 AM ADVANCED DIRECTIVES Advance Directives and Living Will 08/20/2013 12:00 AM ADVANCED DIRECTIVES Advance Directives and Living Will 08/19/2013 12:00 AM ADVANCED DIRECTIVES Advance Directives and Living Will 08/12/2013 12:00 AM ADVANCED DIRECTIVES Advance Directives and Living Will 07/29/2013 12:00 AM ADVANCED DIRECTIVES Advance Directives and Living Will 07/22/2013 12:00 AM ADVANCED DIRECTIVES Advance Directives and Living Will 06/24/2013 12:00 AM ADVANCED DIRECTIVES Advance Directives and Living Will 06/17/2013 12:00 AM ADVANCED DIRECTIVES Care Teams Stadium Manager Relationship Specialty Start Date End Date Raphael Summers MD [address] [place] [address] PCP - General FAMILY PRACTICE 09/23/22
--- OUTSIDE RECORDS SUMMARY | 2024-10-18 01:14 | XMS_ITS ---
Author Organization [facility] Address [address] [place] [address] Care Team Providers Care Rail Detector Car Operator Name Role Phone Jimmie Bingham Primary Care Provider Unavailab Dr. Ghassan Guerrier Unavailable [phone] ZZ-Migration, Provider Unavailable Unavailab sully [facility] Conversion Encounter Medications Medication SIG (Take, Route, Frequency, Duration) Notes Start Date End Date Status Donepezil HCl 10 MG 1 tab(s) orally once a day (at bedtime) for 30 day(s) Activ e Gabapentin 300 MG 1 cap(s) tid with me als x 1 week, then 1 cap qid (tid with meals and qHS) if tolerated orally as directed for 30 days Active Nortriptyline HCl 10 MG 1 cap(s) orally 3 times a day for 30 day(s) Active Meloxicam 15 MG 1 tab(s) orally once a day for 30 day(s) Active Montelukast Sodium 10 MG 1 tab(s) orally once a day for 30 day(s) Active oxyBUTYnin Chloride 5 MG 1 tab(s) orally daily Active Encounters Encounter Location Date Provider Diagnosis [facility] [address] [facility] [place] [address] 02/21/2024 Provider ZZ-Migration Plan Of Treatment No Information Progress Notes * Tasia RAYADOB: 8 (78 yo F)Acc No.[id number]:02/21/2024 Patient: W Tasia CASTELLANO Provider: Jessi Quezada :1945 A ge:78 Y S ex:Female Date:02/21/2024 Address:[address] [place], [place] [address] Pcp:Jimmie Bingham Subjective: * Chief Complaints: * 1 . [facility] To [facility] Conversion Encounter. * Medical History: * Medications: T aking oxyBUTYnin Chloride 5 MG Tablet 1 tab(s) orally daily , Taking Meloxicam 15 MG Tablet 1 tab(s) orally once a day , Taking Montelukast Sodium 10 MG Tablet 1 tab(s) orally once a day , Taking Nortriptyline HCl 10 MG Capsule 1 cap(s) orally 3 times a day , Taking Donepezil HCl 10 MG Tablet 1 tab(s) orally once a day (at bedtime) , Taking Gabapentin 300 MG Capsule 1 cap(s) tid with meals x 1 week, then 1 cap qid (tid with meals and qHS) if tolerated orally as directed Objective: * Vitals: Assessment: Plan: * Treatment: * Billing Information: * Visit Code: * Procedure Codes: * Electronic signature of Prov mindar SelvinZ-Migration on 10/18/2024 at 01:14 AM SECURITY SYSTEMS INSTALLER Sign off status: Pending * Provider: Jessi Quezada Date: 02/21/2024 Generated for Yoni hathaway/Jennifer/Mae on: 0 10/18/2024 01:14 AM SECURITY SYSTEMS INSTALLER
--- OUTSIDE RECORDS SUMMARY | 2024-10-18 01:14 | XMS_ITS | Patient Health Record ---
Author Organization [facility] Address [address] [place] [address] Care Team Providers Care As400 Programmer Name Role Phone Jimmie Bingham Primary Care Provider Unavailab Dr. Ghassan Guerrier Unavailable [phone] ZZ-Migration, Provider Unavailable Unavailab virk Allergies No Known Allergies Reason For Referral No Information Medications Medication SIG (Take, Route, Frequency, Duration) [...] times a day for 30 day(s) Active DONEPEZIL 10 mg 1 tab(s) orally once a day (at bedtime) for 30 day(s) Activ e GABAPENTIN 300 mg 1 cap(s) tid with me als x 1 week, then 1 cap qid (tid with meals and qHS) if tolerated orally as directed for 30 days Active OXYBUTYNIN 5 mg 1 tab(s) orally daily Active Meloxicam 15 MG 1 tab(s) orally once a day for 30 day(s) Active MELOXICAM 15 mg 1 tab(s) orally once a day for 30 day(s) Active Montelukast Sodium 10 MG 1 tab(s) orally once a day for 30 day(s) Active MONTELUKAST 10 mg 1 tab(s) orally once a day for 30 day(s) Active NORTRIPTYLINE 10 mg 1 cap(s) orally 3 ti mes a day for 30 day(s) Active oxyBUTYnin Chloride 5 MG 1 tab(s) orally daily Active Problems Problem Type SNOMED Code ICD Code Onset Dates Problem Status W/U Status Risk Notes Problem 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 confirmed Problem Hereditary disorder of nervous system (708775253) Hereditary and idiopathic neuropathy, unspecified (G60.9) Active confirmed Problem Degeneration of lumbar intervertebral disc (51472936) Other intervertebral disc degeneration, lumbar region (M51.36) Active confirmed Problem Low back pain (647748012) Low back pain, unspecified (M54.50) Active confirmed Encounters Encounter Location Date [facility] [address] 02/21/2024 Provider ZZ-Migration Plan Of Treatment No Information Insurance Providers Payer Name Payer Address Payer Phone Subscriber Number Group Number Insured Name Patient Relationship to Insured Coverage Start Date Coverage End Date [employer] (Medicare) Attention Claims [address] [place] [address] [id number] Tasia Raya Self [place] [id number] Tasia Raya Self - patient is the insured Medical (General) History Medical History History ICD Code HLD Lumbar DDD Mild cognitive impairment Macular degeneration Nephrolithiasis Surgical History Surgery Date(Month/Year) Lumbar discectomy L4/L5 Tubal ligation
--- OUTSIDE RECORDS SUMMARY | 2024-10-18 01:14 | XMS_ITS | Continuity of Care Document ---
Author Organization [facility] Address [address] [place] [address] Phone Care Team Providers Care Product Development Name Role Phone [facility] Unavailable Unavail able Lucrecia Barboza Unavailable Unavailable Procedures Procedure Date Vision Svcs Frames Purchases BF Plastic Sphcyl [place] To +/-4d .12-2d Progressive Lens, Plastic Ultra Deluxe Frame Anti-reflective Coating Tax - Medical Advance Directives Directive Yes / No Effective Date File Name No Information Encounters Encounter Description Practice Location Reason(s) For Visit Diagnoses Date Provider Providers Copied on Encounter [facility], [address] [place] [address] [address], [place], [place], [id number], [place] tel:[phone] [facility] No Information 1201 0 [facility] [address] [facility], [address], [id number] , [place]. tel:[phone] Consulting Provider: Lucrecia Barboza, [address] [place] [address], [address]. tel:[phone] 2848 [facility], [address] [place] [address] [address], [place], [place], [id number], [place] tel:[phone] [facility] No Information 8-200 8 [facility] [facility], [address], [id number] , [place]. tel:[phone] Consulting Provider: [place], [address]. tel:[phone] [facility], [address], [place], [place], [id number], [place] tel:[phone] [facility] No Information 8 [facility] [employer] [address] [facility], [address], [place], [place], [id number] , [place]. tel: [phone] Referring Provider: Jewel Brewer MD, [address] [place] [address], [address]. tel:[phone] g Provider: Jina Mendoza, [address] [place], [address]. tel:[phone] Family History Family Member Type Diagnosis Age At Onset No Information Payers Payer name Insurance type Covered green party ID Authoriza tion(s) No Information Social History Type Description Quantity Date Captured Comments Sex Female Smoking Status No Information Chief Complaint And Reason For Visit No Information Reason For Referral Reason For Referral No Information History Of Present Illness Encounter Date Complaint History Of Prese nt Illness No Information Functional Status Date Functional Assessmen t No Information Instructions Date Instruction Additional Infor mation No Information Assessments Type Assessment Date No Information Patient Care Teams Name Effective Dates (start - stop) Status Members No Information
--- OUTSIDE RECORDS SUMMARY | 2024-10-18 01:14 | XMS_ITS | Data Portability ---
Author Organization [facility] Main Office Address [address] [place] [address] Care Team Providers Care Diesel Dragline Operator Name Role Phone RAPHAEL SUMMERS Primary Care Provider RAPHAEL SUMMERS Referring Provider Assessment Encounter Date Assessment Date Assessment LastModified by Organization Details LastModified Time 11/11/2022 11/11/2022 Patient presents back pain. Pain is localized lumbar spine worse with activity somewhat relieved by rest she has more pain with extension or flexion pain is daily she has got neurologically she appears to be intact although she does have numbness in her feet she thinks this is just neuropathy. I am unable to reproduce any radicular pain today she does more pain with extension and flexion. Will try course of physical therapy. For prescription drug management will try a prednisone taper for pain and inflammation. I will see her back in a month for follow-up and reassess if this does not get better the next step is an MRI scan. [email or web address] Not available 11/11/2022 11:10:29 2022 2022 Patient returns she has lumbar stenosis. She is aggravated by riding in a car she had gotten better with the steroid pills and physical therapy although it has returned now. This is complicated by the fact that she has ongoing neuropathy in her lower legs. I recommended prednisone taper for prescription drug management. She will continue with exercises. I will see her back in a month for follow-up it does get better next step would be an MRI scan. [email or web address] Not available 2022 11:05:29 Plan of Treatment Reminders Order Date Submit Date Provider Last Modified By Organization Details Last Modified Time Details Appointments None recorded. Lab None recorded. Referral physical therapist referral - please contact patient to schedule 2022 023 [facility] [place], [address] [place], [address], 3 15:36:58 Procedures None recorded. Surgeries None recorded. Imaging XR, lumbar spine 2022 023 [email or web address] [facility] [place], [address], [place], [address], 3 12:45:21 Medication Orders prednisone 10 mg tablets in a dose pack [email or web address] [facility], [address], [place], [address], 3 11:26:46 prednisone 10 mg tablets in a dose pack [email or web address] [facility], [address], [place], [address], 3 11:06:11 Patient TargetsNo targets recorded. Patient InstructionsNo instructions recorded. Reason for Referral Physical Therapist Referral for Spinal stenosis of lumbar region please contact patient to schedule Referring Physician: Sujit Holly, Orthopedic Surgery, Encounter Date: 11/11/2022 Results Created Date Observation Date Name Description Value Unit Range Abnormal Flag Note LastModifiedBy Organization Detail LastModifiedTime 11/12/19 23 XR, lumba r spine No observ ation record ed. [email or web address] [facility] [place] [address], [place], [address], 11/11/2022 11:09:17 Result Notes None recorded. Problems Name Problem SNOMED Code Status Onset Date Resolution Date Notes Provider Name and Address Organization Details Recorded Time Acquired trigger finger 9326138 Active Not Available [facility] 3 12:46:07 Low back pain 854294029 Active 023 ELSA Mcdermott, [place] [facility] 3 10:20:16 Spinal stenosis of lumbar region 96256203 Active 023 Milana padilla [place] [facility] 3 11:12:28 Problem Notes None recorded. Procedures Surgical History None recorded. Imaging Results Imaging Date Name Status LastModified by Organiz ation Details LastModified Time 11/11/2022 XR, lumbar spine completed [facility] [place] [address], [place], [address], 11/11/2022 11:09:17 Procedure Notes None recorded. Medical Equipment None Reported. Medications Name Sig Start Date Stop Date Status Note LastModified by Organization Details LastModified Time prednisone 10 mg tablet TAKE 1 TABLET BY MOUTH THREE TIMES DAILY FOR 3 DAYS THEN 1 TWICE DAILY FOR 2 DAYS THEN 1 ONCE DAILY FOR 1 DAY active Not Available Not Available No t Available hydrocodone 5 mg-acetamin ophen 325 mg tablet 11/11 completed Not Available Not Available Not Available donepezil 10 mg tablet active Not Available Not Available Not Available alendronate 70 mg tablet TAKE 1 TABLET BY MOUTH ONCE A WEEK IN THE MORNING AT LEAST 30 MINUTES BEFORE FIRST FOOD, BEVERAGE, OR MEDICATIO N OF DAY. active Not Available Not Available No t Available prednisone 10 mg tablets in a dose pack Take 1 tab by mouth, 3 times a day for 3 daysTake 1 tab by mouth 2 times a day for 2 daysTake 1 tab by mouth once a day for 1 day 2022 active Not Available Not Available Not Avai lable tamsulosin 0.4 mg capsule TAKE 1 CAPSULE BY MOUTH AT BEDTIME 11/11 completed Not Available Not Available Not Available benzonatate 100 mg capsule 11/11 completed Not Available Not Available Not Available hydrocodone 7.5 mg-acetamin ophen 325 mg tablet 11/11 completed Not Available Not Available Not Available cephalexin 500 mg capsule 11/11 completed Not Available Not Available Not Available nortriptyli ne 10 mg capsule TAKE 2 CAPSULES BY MOUTH ONCE DAILY AT NIGHT AT BEDTIME active Not Available Not Available No t Available montelukast 10 mg tablet TAKE 1 TABLET BY MOUTH ONCE DAILY 11/11 completed Not Available Not Available Not Available Nasonex 50 mcg/actuati on Reading 11/11 completed Not Available Not Available Not Available oxybutynin chloride 5 mg tablet TAKE 1 TABLET BY MOUTH NIGHTLY AT BEDTIME active Not Available Not Available No t Available colestipol 1 gram tablet TAKE 1 TABLET BY MOUTH TWICE DAILY 11/11 completed Not Available Not Available Not Available doxycycline hyclate 100 mg tablet 11/11 completed Not Available Not Available Not Available ipratropium bromide 21 mcg (0.03 %) nasal spray USE 2 SPRAY(S) IN EACH NOSTRIL TWICE DAILY NEEDED 11/11 completed Not Available Not Available Not Available naproxen 500 mg tablet 11/11 completed Not Available Not Available Not Available escitalopra m 20 mg tablet TAKE 1 TABLET BY MOUTH ONCE DAILY 11/11 completed Not Available Not Available Not Available rosuvastati n 5 mg tablet TAKE 1 TABLET BY MOUTH ONCE DAILY AT NIGHT AT BEDTIME 11/11 completed Not Available Not Available Not Available rosuvastati n 10 mg tablet TAKE 1 TABLET BY MOUTH ONCE DAILY AT NIGHT AT BEDTIME 11/11 completed Not Available Not Available Not Available Flovent HFA 110 mcg/actuati on aerosol inhaler 11/11 completed Not Available Not Available Not Available Lyrica 75 mg capsule 11/11 completed Not Available Not Available Not Available hydrocodone 5 mg-acetamin ophen 300 mg tablet TAKE 1 TABLET BY MOUTH EVERY 4 TO 6 HOURS NEEDED FOR PAIN. DO NOT DRIVE, OPERATE HAZARDOUS MACHINERY , OR TAKE OTHER SEDATING SUBSTANCE S 11/11 completed Not Available Not Available Not Available hydrocodone 7.5 mg-acetamin ophen 300 mg tablet 11/11 completed Not Available Not Available Not Available Asmanex Twisthaler 110 mcg/actuati on(30 doses) breath activated inhalr 11/11 completed Not Available Not Available Not Available Vitals Date Recorded Body height Body mass index (BMI) Body weight Provider Name and Address Organization Details Last Updated DateTime 11/11/2022 170.18 cm 21.1 kg/m2 91946.97 g EL[facility]der[facility] 11/11/2022 10:16:31 Date Recorded Body height Body mass index (BMI) Body weight Provider Name and Address Organization Details Last Updated DateTime 2022 170.18 cm 20 kg/m2 69031.82 ELSA Craig - [facility] 2022 10:34:32 Social History None recorded. Functional Status None recorded. Mental Status None recorded. Family History Relationship Description Onset Age of this Age Resolved Age Notes LastModified by Organization Details LastModified Time Father Family history of stroke [email or web address] Not available 2022 10:18:42 Mother Family history of malignant neoplasm [email or web address] Not available 2022 10:18:54 Medical History Condition Response ARTHRITIS Y OSTEOPOROSIS Y Gynecological HistoryNo gynecological history recorded. Obstetrics History GPAL:G 0 P 0 0 0 0 Past Encounters Encounter ID Performer Location Encounter Start Date Encounter Closed Date Diagnosis/Indication Diagnosis SNOMED-CT Code Diagnosis ICD10 Code Diagnosis Note [id number] Sujit Holly MD [facility] [place] [address] [place] [address] 11/11/2022 09:45:39 11/11/2022 12:45:21 Low back pain 619402958 M54.50 [place] nosis of lumbar region 87221667 M48.061 [id number] Sujit Holly MD [facility] [place] [address] [place] [address] 2022 10:28:08 2022 11:07:48 Low back pain 759538571 M54.50 [place] nosis of lumbar region 59421371 M48.061 Health Concerns Section Related Observation LastModified by Organization Detai ls LastModified Time None Recorded Concern Status LastModified by Organization Details LastModified Time None Recorded Advance Directives Directive None Recorded Payers Encounter Date Sequence Insurance Name Policy Number Policy Garrido Covered Member ID Garrido Member ID Guarantor Name 11/11/2022 1 [place] Tasia Raya [id number] Tasia Jessi Raya 11/11/2022 2 [employer] [place] (MEDICARE SUPPLEMENT) Tasia Raya [id number] Tasia Raya 2022 1 [place] Tasia Raya [id number] Tasia Raya 2022 2 [employer] [place] (MEDICARE SUPPLEMENT) Tasia Raya [id number] Tasia Raya Notes Date Note Type Note Provider Name and Address Organization Details Recorded Time 11/11/2022 text/html L-spineReported bypatient.Location: posterior; deep Quality:aching; throbbing; dull; frequent Severity:moderate Duration:continuous since onset Timing:chronic Context:lifting; twisting; overuse Alleviating Factors:lying down; position change; ice; rest; elevation Aggravating Factors:walking; bending/squatting; exercise Associated Symptoms:no numbness; no tingling; no swelling; no redness; no ecchymosis; no catching/locking; no popping/clicking; no buckling; no grinding; no instability; no radiation down leg; no drainage; no fever; no chills; no weight loss; no change in bowel/bladder habits;weakness;war mth Sujit Holly MD [address] [address], [place], [address], [facility] 11/11/2022 13:21:39 2022 text/html Patient returns back pain is returned 2 she did well for a while until she wrote 5 hours in a car pain is returned mostly in the low back occasionally radiating down her buttocks. It is hard to tell whether its a radiculopathy or a neuropathy. She has both mainly neuropathy. Sujit Holly MD [address], [address] [address], [place], [address], [facility] 2022 11:06:06 OBGyn Episode No OBEpisode recorded.
--- OUTSIDE RECORDS SUMMARY | 2024-10-18 01:14 | XMS_ITS ---
Author Organization [facility] Address [address] [place] [address] Care Team Providers Care Clinical Education Assistant Name Role Phone Jimmie Bingham Primary Care Provider Dr. Ghassan Keith Unavailable [phone] Allergies No Known Allergies REASON FOR VISIT Patient presented for EMG study. The study was completed and the report is scanned into the Documents section of the chart, Office visit for peripheral neuropathy Medications Medication SIG (Take, Route, Fr equency, Duration) Notes Start Date End Date Status DONEPEZIL 10 mg 1 tab(s) orally once a day (at bedtime) for 30 day(s) Active GABAPENTIN 300 mg 1 cap(s) tid with me als x 1 week, then 1 cap qid (tid with meals and qHS) if tolerated orally as directed for 30 days A ctive MELOXICAM 15 mg 1 tab(s) orally once a day for 30 day(s) Active MONTELUKAST 10 mg 1 tab(s) orally once a day for 30 day(s) Active NORTRIPTYLINE 10 mg 1 cap(s) orally 3 ti mes a day for 30 day(s) Active OXYBUTYNIN 5 mg 1 tab(s) orally daily Active Problems Problem Type SNOMED Code ICD Code Onset Dates Problem Status W/U Status Risk Notes Problem Hereditary disorder of nervous system (448571824) Hereditary and idiopathic neuropathy, unspecified (G60.9) Active confirmed Encounters Encounter Location Date Provider Diagnosis [facility] [address] [place] [address] 07/30/2023 Ghassan Ardon Hereditary and idiopathic neuropathy, unspecified G60.9 ; Other intervertebral disc degeneration, lumbar region M51.36 and Low back pain, unspecified M54.50 Assessments Encounter Date Diagnosis (ICD Code) Assessment Notes Treatment Notes Treatment Clinical Notes Section Notes 07/30/2023 Hereditary and idiopathic neuropathy, unspecified (ICD-10 - G60.9) Increase gabapentin to 300 mg qid. Could increase further as necessary/tole rated 07/30/2023 Other intervertebral disc degeneration, lumbar region (ICD-10 - M51.36) F/u with Dr. Bingham, Pain Management 07/30/2023 Low back pain, unspecified (ICD-10 - M54.50) F/u with Dr. Bingham, Pain Management Plan Of Treatment Treatment Notes Assessment Notes Hereditary and idiopathic ne uropathy, unspecified Increase gabapentin to 300 mg qid. Could increase further as necessary/tolerated Other intervertebral disc de generation, lumbar region F/u with Dr. Bingham, Pain Management Low back pain, unspecified F/u with Dr. Bingham, Pain Management Progress Notes * Tasia RAYADOB: 8 (77 yo F)Acc No.[id number]:07/30/2023 Patient: Kris Coronassica Provider: Mario Ardon MD :1945 A ge:77 Y S ex:Female Date:07/30/2023 Address:[address] [place], [place] [id number] Pcp:Jimmie Bingham Subjective: * Chief Complaints: * P atient presented for EMG study. The study was completed and the report is scanned into the Documents section of the chartOffice visit for peripheral neuropathy * HPI: * Interval History: Notes R eviewed testing with patient and . She has lumbar DDD and has had prior lumbar spinal surgery. She has chronic low back pain. However, she also has numbness and burning pain in both feet. 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 Changes were quite mild, with small or slightly small sural and superficial peroneal sensory responses and active denervation in bilateral intrinsic foot muscles. There were no changes suggestive of radiculopathy on either side. Laboratory testing included the following labs: A1c, 2 hour glucose tolerance test, B12, copper, SPEP, urine/serum AILEEN, JENN. The labs were all normal. My conclusion is that her peripheral neuropathy is idiopathic. It should not progress much over timed or cause disability, although it could progress to a mild degree. I advised increasing gabapentin to 300 mg qid to address the neuropathic pain in her feet. * Medical History: * Surgical History: L umbar discectomy L4/L5 Tubal ligation * Hospitalization/Major Diagno stic Procedure: * Social History: Non-smoker. * Medications: T akingoxyBUTYnin 5 mg tablet 1 tab(s) orally dailymeloxicam 15 mg tablet 1 tab(s) orally once a daymontelukast 10 mg tablet 1 tab(s) orally once a daynortriptyline 10 mg capsule 1 cap(s) orally 3 times a daydonepezil 10 mg tablet 1 tab(s) orally once a day (at bedtime)gabapentin 300 mg capsule 1 cap(s) tid with meals x 1 week, then 1 cap qid (tid with meals and qHS) if tolerated orally as directedTaking oxyBUTYnin 5 mg tablet 1 tab(s) orally dailyTaking meloxicam 15 mg tablet 1 tab(s) orally once a dayTaking montelukast 10 mg tablet 1 tab(s) orally once a dayTaking nortriptyline 10 mg capsule 1 cap(s) orally 3 times a dayTaking donepezil 10 mg tablet 1 tab(s) orally once a day (at bedtime)Taking gabapentin 300 mg capsule 1 cap(s) tid with meals x 1 week, then 1 cap qid (tid with meals and qHS) if tolerated orally as directed * Allergies: N .K.D.A.no[Allergies Verified] Objective: * Physical Examination: Sparkle elizondo's visit was spent in counseling. Assessment: * Assessment: 1. H ereditary and idiopathic neuropathy, unspecified - G60.9 (Primary) 2 . O ther intervertebral disc degeneration, lumbar region - M51.36 3 . L ow back pain, unspecified - M54.50 Plan: * Treatment: 2. O ther intervertebral disc degeneration, lumbar region Notes: F/u with Dr. Bingham, Pain Management 3. L ow back pain, unspecified Notes: F/u with Dr. Bingham, Pain Management * Procedure Codes: 9 5911 NRV CNDJ TEST 9-10 [id number] MUSC TEST DONE W/N TEST COMP, Units: 2.00 1123F ACP DISCUSS/DSCN MKR DOCD, Modifiers: 8P G8484 FLU IMMUNIZE NO ORDER/[id number] Pneum vax admin 60+G8420 BMI<30 AND >=22 CALC & [id number] TOBACCO [id number]-[id number] BP SCR PRFRM RCMDD DEFIND SCR INTVL * Preventive Medicine: T his was a 15 minute visit with time spent in reviewing tests and counseling. * Billing Information: * Visit Code: 20140 Office Visit, Est Pt., Level 3. Modifiers: 25 * Procedure Codes: 92442 NRV CNDJ TEST 9-10 STUDIES. 40393 MUSC TEST DONE W/N TEST COMP. Units: 2.00. 1123F ACP DISCUSS/DSCN MKR DOCD. Modifiers: 8P G8484 FLU IMMUNIZE NO ORDER/ADMIN. G9991 Pneum vax admin 60+. G8420 BMI<30 AND >=22 CALC & DOCU. 1036F TOBACCO NON-USER. G8783 BP SCR PRFRM RCMDD DEFIND SCR INTVL. * TE HEALTH COACH Sign off status: Completed true * Provider: Mario Ardon MD Date: 09/29/2022 Generated for Ninoshay hathaway/Jennifer/Dieteritting on: 0 10/18/2024 01:13 AM ONSITE HEALTH COACH History and Physical Notes * HPI (History of Present Illness) Category Sub-Category Detail Notes Category Not es *Interval History Notes Reviewed hu hathaway with patient and . She has lumbar DDD and has had prior lumbar spinal surgery. She has chronic low back pain. However, she also has numbness and burning pain in both feet. 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 Changes were quite mild, with small or slightly small sural and superficial peroneal sensory responses and active denervation in bilateral intrinsic foot muscles. There were no changes suggestive of radiculopathy on either side. Laboratory testing included the following labs: A1c, 2 hour glucose tolerance test, B12, copper, SPEP, urine/serum AILEEN, JENN. The labs were all normal. My conclusion is that her peripheral neuropathy is idiopathic. It should not progress much over timed or cause disability, although it could progress to a mild degree. I advised increasing gabapentin to 300 mg qid to address the neuropathic pain in her feet Physical Examination Category Sub-Category Detail Notes Section Note s Today's visit w as spent in counseling
--- OUTSIDE RECORDS SUMMARY | 2024-10-18 01:14 | XMS_ITS | Clinical Summary ---
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 Active LORazepam (ATIVAN) 0.5 MG Tablet Take 0.5 mg by mouth every 8 hours as needed. Active Multiple Vitamins-Minera ls (MULTIPLE VITAMINS/WOMENS PO) Take by mouth every morning. Active Multiple Vitamins-Minera ls (PRESERVISION AREDS 2 PO) Take by mouth every morning. Active Cholecalciferol (VITAMIN D3) 1.25 MG (66519 UT) Tablet Take by mouth every morning. Active Garner-3 1000 MG Capsule Take by mouth every morning. Active fluticasone (FLONASE) 50 MCG/ACT Suspension 1-2 Sprays by Nasal route daily as needed. Use in each nostril as directed. Active rosuvastatin (CRESTOR) 5 MG Tablet Take 5 mg by mouth daily. Active colestipol (COLESTID) 1 GM Tablet Take 1 Tablet by mouth 2 times daily. 60 Tablet 1 11/23/2021 Active nortriptyline (PAMELOR) 10 MG Capsule Take 10 mg by mouth nightly. Active Active Problems No known active problems Immunizations Immunization Administration Dates Next Due Influenza Vaccine 06/13/2017 Influenza, High-dose, Quadrivalent 07/04/2021 Influenza, Quadrivalent, Adjuvanted 07/06/2020 Influenza, Seasonal, Injectable, Undefined 06/14 Influenza, high-dose, trivalent, PF 06/22/2019,1 Pneumococcal Vaccine - 13 Valent 02/21/2016 Pneumococcal Vaccine Adult - 23 Valent 2 TD VACCINE 11/26/2001 TDAP Vaccine 10/26/2019,05/15/2016 Zoster Vaccine Recombinant 03/01/2021,10/26/2019 Family History Medical History Relation Name Comments Cancer Maternal Aunt Colon Cancer Maternal Grandfather Other-comment Maternal Grandmother Cancer Maternal Uncle Diabetes Mother Hypertension Mother Other-comment Mother L muslim tumor Stroke Mother Cancer Paternal Grandmother Pancrea tic Kidney Cancer Sister Relation Name Status Comments Father Alive Maternal Aunt Maternal Grandfather Maternal Grandmother Maternal Uncle Mother Paternal Grandmother Sister Social History Tobacco Use Types Packs/Day Years Used Date Smoking Tobacco: Former Cigarettes 0.3 5 0 05/09/1974 - 05/09/1979 Smokeless Tobacco: Never Tobacco Cessation:Counseling Given: No Alcohol Use Standard Drinks/Week Comments Not Currently 0 (1 standard drink = 0.6 oz pur e alcohol) Sexually Active Control Partners Comments Not Currently Comments No Sex and Gender Information Value Date Recorded Sex Assigned at Not on file Legal Sex Female 12:26 AM CDT Gender Identity Not on file Sexual Orientation Not on file Last Filed Vital Signs Vital Sign Reading Time Taken Comments Blood Pressure 136/78 01/03/2022 10:09 AM CDT Pulse 79 01/03/2022 10:09 AM CDT Temperature 37 C (98.6 F) 12/04/2021 9:45 AM CDT Respiratory Rate 18 01/03/2022 10:09 AM CDT Oxygen Saturation 90% 01/03/2022 10:09 AM CDT Inhaled Oxygen Concentration - - Weight 65.3 kg (144 lb) 01/03/2022 10:09 AM CDT Height 167.6 cm (5' 6 ) 01/03/2022 10:09 AM CDT Body Mass Index 23.24 01/03/2022 10:09 AM CDT Plan of Treatment Health Maintenance Due Date Last Done Comments DEXA Bone Density 1945 Hepatitis C Virus (HCV) Screening 1945 Pneumococcal Immunization (50+ years) (3 of 3 - PCV20 or PCV21) 02/20/2021 02/21/2016, 12/18/2011 Respiratory Syncytial Virus (RSV) Immunization (Adult) (1 - 1-dose 75+ series) 12/08/2022 Influenza Immunization (#1) 05/09/202406/09, 07/06/2020, 06/22/2019, Additional history exists SARS-COV-2 Immunization ( season) 2024 12/23/2020, 12/02/2020 Pneumococcal Immunization Combined Discontinued 02/21/2016, 12/18/2011 DTaP/Tdap/Td Immunization Discontinued 2019, 05/15/2016, 11/26/2001 Zoster Immunization Completed 03/01/2021, Colonoscopy High Risk Discontinued 12/04/2021 , 05/09/2020, 07/03/2015 Colonoscopy Discontinued 12/04/2021, 0909/2019, 07/03/2015 Colorectal Cancer Screening Discontinued Cologuard Discontinued Hepatitis B Immunization Aged Out No longer eligible based on patient's age to complete this topic Immunochemical Fecal Occult Blood Discontinued Meningococcal Immunization (ACWY) Aged Out No longer eligible based on patient's age to complete this topic Rotavirus Immunization Aged Out No lo nger eligible based on patient's age to complete this topic Procedures Procedure Name Priority Date/Time Associated Diagnosis Comments COLONOSCOPY Routine 07/03/2015 from Last 3 Months or Most Recently Relevant to Health Maintenance Results * COLONOSCOPY (07/03/2015) Tomy Wu DO PROCEDURE/MINOR SURGICAL ORDERA BLES Final Result from Last 3 Months or Most Recently Relevant to Health Maintenance Insurance [address] [place] [address] MEDICARE Care Teams 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
--- NOTE | 2024-10-18 01:23 | PC.NURSE ---
Patient states she was seen in [facility] and then followed up with urology on Friday but pain has gotten worse over the past day. Patient sees . Patient denies any issues with urination.
--- NOTE | 2024-10-18 01:24 | ED.FEMALEGU ---
HPI - Female Genitourinary General Chief complaint: Urogenital-Female Stated complaint: flank pain Time Seen by Provider: 10/18/24 01:22 Source: patient and family (answers many questions for/on behalf of patient) Mode of arrival: ambulatory History of Present Illness HPI Narrative: Patient presents with right flank pain. She was diagnosed with a 6mm kidney stone at [facility] a few days ago and taking meds but no improving. Has previously seen Dr Glover as she required a procedure once for kidney stone but does not know if it was lithotripsy, stent, etc. Pain becoming more severe tonight around 7pm. Took Percocet before coming and an antinausea medicine around midnight because had been nauseated. no Vomiting. Denies abdominal pain. No fevers/chills. No dysuria or hematuria. No history of UTI/pyelo. Related Data Home Medications ?Medication ?Instructions ?Recorded ?Confirmed ?Last Taken ?Type tamsulosin 0.4 mg capsule 0.4 mg PO 11/08/21 10/18/24 Unknown History celecoxib 200 mg capsule 200 mg PO QHS 10/18/24 10/18/24 Unknown History cholecalciferol (vitamin D3) 125 5,000 unit PO BID 10/18/24 10/18/24 Unknown History mcg (5,000 unit) tablet (Vitamin D3) cyanocobalamin (B12)-cobamamide 1 harry sublingual DAILY 10/18/24 10/18/24 Unknown History 5,000 mcg-100 mcg sublingual lozenge (B12) donepezil 10 mg tablet 10 mg PO QHS 10/18/24 10/18/24 Unknown History montelukast 10 mg tablet 10 mg PO DAILY 10/18/24 10/18/24 Unknown History omega-3 fatty acids 1,000 mg PO BID 10/18/24 10/18/24 Unknown History ondansetron 4 mg disintegrating 4 mg PO Q8H PRN nausea and vomiting 10/18/24 10/18/24 Unknown History tablet oxycodone-acetaminophen 5 mg-325 1 tablet PO Q6H PRN pain 10/18/24 10/18/24 Unknown History mg tablet thiamine HCl (vitamin B1) 100 mg 100 mg PO QHS 10/18/24 10/18/24 Unknown History capsule vitamins A,C,P-myer-trzsqr 2,148 1 tablet PO BID 10/18/24 10/18/24 Unknown History mcg-113 mg-45 mg-17.4 mg tablet (PreserVision AREDS) Allergies Allergy/AdvReac Type Severity Reaction Status Date / Time amoxicillin Allergy Unknown Blistery Verified 10/18/24 13:08 Rash, GOOFY clavulanic acid Allergy Unknown Blistery Verified 10/18/24 13:08 Rash, GOOFY fentanyl AdvReac Severe ITCHEY RASH Verified 10/18/24 13:08 PMFSH Past Medical History Medical History History of hyperlipidemia Social History Social History Smoking status: Never smoker Alcohol intake: never Substance use: never Do You Feel Safe in your Home?: Yes Lack of Transportation: No Lack of Food: Never True Current Housing: I Have Housing Concerned About Future Housing: No Difficulty Paying Gas/Electric Bills: No Difficulty Paying for Meds: No Currently Unemployed: No Education: High School Diploma/GED Difficulty w/ Childcare or Family Care: No Living arrangements: with family Spiritual care concerns: No Exam Narrative: GENERAL: Well-appearing, well-nourished, and in mild to moderate acute distress. HEAD: Normocephalic, atraumatic. EYES: Non injected, non icteric ENT: Nares clear, no rhinorrhea or epistaxis. NECK: Supple. CHEST: Speaking in full sentences. No respiratory distress. HEART: Regular rate and rhythm. . ABDOMEN: Soft, nondistended. EXTREMITIES: Normal range of motion. No lower extremity edema. SKIN: Warm, dry, no rash. NEURO: No focal deficits. Patient appears Alert and oriented but spouse/partner assisting them with answering several questions - unclear if patient baseline confused or assisting secondary to patient's pain PSYCH: Normal mood and affect. Course Vital Signs Vital signs: Vital Signs Temperature 97.9 F 10/18/24 01:19 Pulse Rate 77 10/18/24 01:19 Respiratory Rate 20 10/18/24 01:19 Blood Pressure 173/78 H 10/18/24 01:19 Pulse Oximetry 98 10/18/24 01:19 Oxygen Delivery Room Air 10/18/24 01:19 Temperature 98.2 F 10/18/24 13:38 Pulse Rate 85 10/18/24 14:40 Respiratory Rate 18 10/18/24 14:40 Blood Pressure 157/74 H 10/18/24 14:40 Pulse Oximetry 94 10/18/24 14:40 Oxygen Delivery Room Air 10/18/24 14:40 Oxygen Flow Rate 6 10/18/24 13:55 MDM - Female Genitourinary MDM Narrative Medical decision making narrative: 78 yo presents after having been diagnosed with 6mm kidney stone at [facility] a few days ago but with worsening pain, hasn't passed stone to her knowledge yet. Previously has seen Dr Glover. In the emergency department, she is afebrile with vital signs notable for hypertension. Analgesia ordered. CBC generally unremarkable. Obstruction on CT as below. Spoke with Dr. Alex nurse's companion urologist at 04:45. He recommends starting antibiotics, obtaining urine culture which is already in process, keeping patient NPO, and admitting patient to medicine as she will likely require stent but at this point is unclear at what time today and she may require a stay after for a day or two. Attempted to review prior urine cultures but there are none. Will give a dose of ceftriaxone. Discussed in person with hospitalist Dr Orta. Med/surg bed. Her vital signs have been stable (blood pressure reducing but had been elevated initially, MAPs fine throughout). Differential Diagnosis Differential diagnosis: Likely urinary tract infection (pyelo), ruptured ovarian cyst and other (kidney stone - concern for obstruction/ANANTH/ARF/hydroureteronephrosis/septic stone/etc.) Lab Data Attestation: I reviewed the patient's lab results. 10/18/24 01:27 10/18/24 01:27 Labs: Lab Results 10/18/24 10/18/24 Range/Units 01:27 04:15 WBC 8.9 (4.5-10.0) K/mm3 RBC 4.45 (4.2-5.4) M/mm3 Hgb 13.2 (12.0-15.0) g/dL Hct 39.9 (37.0-47.0) % MCV 89.7 (80-100) fl MCH 29.7 (26-34) pg MCHC 33.1 (32-36) g/dl RDW 13.8 (11.5-14.5) % Plt Count 256 (150-375) k/mm3 MPV 9.0 (7.4-10.4) fl Immature Gran % (Auto) 0.4 (0-0.5) % Neut % (Auto) 73.1 (45.5-73.1) % Lymph % (Auto) 15.5 L (18.3-44.2) % Lyon % (Auto) 9.5 H (2.6-8.5) % Eos % (Auto) 0.9 (0-4.4) % Baso % (Auto) 0.6 (0.2-1.2) % Lymph # (Auto) 1.38 (0.9-3.2) K/mm3 Lyon # (Auto) 0.9 H (0.1-0.6) K/mm3 Eos # (Auto) 0.1 (0-0.3) K/mm3 Baso # (Auto) 0.1 (0.0-0.1) K/mm3 Abs Immat Gran (auto) 0.04 H (0.00-0.031) K/mm3 Absolute Neuts (auto) 6.5 (1.3-6.7) K/mm3 Absolute Nucleated RBC 0.000 (0.0-0.012) K/mm3 Nucleated RBC % 0.0 (0.0-0.2) % Sodium 140 (137-145) mmol/L Potassium 3.7 (3.4-5.0) mmol/L Chloride 104 (98-107) mmol/L Carbon Dioxide 25 (22-30) mmol/L Anion Gap 11 (4-12) mmol/L BUN 29 H (7-17) mg/dL Creatinine 0.78 (0.7-1.0) mg/dL Estim Creat Clear Calc Not Reportable Estimated GFR > 60 (59 - ) Glucose 105 (65-110) mg/dL Calcium 9.0 (8.4-10.2) mg/dL Total Bilirubin 0.5 (0.2-1.3) mg/dL AST 27 (14-36) U/L ALT 22 (6-35) U/L Alkaline Phosphatase 78 (38-126) U/L Total Protein 7.0 (6.3-8.2) g/dL Albumin 3.8 (3.5-5.1) g/dL Urine Color Yellow (Yellow) Urine Appearance Clear (Clear) Urine pH 5.5 (5.0-9.0) Ur Specific [place] 1.015 (1.001-1.035) Urine Protein Trace (Negative) mg/dL Urine Glucose (UA) Negative (Negative) mg/dL Urine Ketones 1+ H (Negative) mg/dL Ur Blood (Man) 3+ H (Negative) Urine Nitrate Negative (Negative) Urine Bilirubin Negative (Negative) Urine Urobilinogen 0.2 (<2.0) mg/dL Leukocyte Esterase Rfl Trace H (Negative) VIVIEN/UL Urine RBC >100 H (0-2) /hpf Urine WBC 11-20 H (0-3) /hpf Ur Squamous Epith Cells None seen (Few) /hpf Urine Bacteria None seen /hpf Urine Casts 0-2 Imaging Data Radiologist's impression: CT Abd/Pelvis w/o contrast: Obstructive 6 x 5 x 8 mm calculus within the right proximal ureter (visualized on physician neonatology imaging) with upstream mild right renal hydronephrosis with perinephric and periureteral stranding. Nonobstructive calculi in the kidneys bilaterally, the largest within the interpolar right kidney measuring up to 6 mm. Diffuse bladder wall thickening which is favored to relate to underdistention. Cystitis is less likely. Normal appendix. No evidence of bowel obstruction. Colonic diverticulosis. No evidence of diverticulitis. No other acute findings. Discharge Plan Discharge Clinical Impression: Urinary tract obstruction by kidney stone, Hydroureteronephrosis Patient Disposition: Still a Patient Condition: Stable
--- OUTSIDE RECORDS SUMMARY | 2024-10-18 01:31 | XMS_ITS | Continuity of Care Document ---
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 Role Phone [facility] Unavailable Unavail able Lucrecia Barboza Unavailable Unavailable Procedures Procedure Date [facility] Svcs Frames Purchases BF Plastic Sphcyl [place] To +/-4d .12-2d Progressive Lens, Plastic Ultra Deluxe Frame Anti-reflective Coating Tax - Medical Advance Directives Directive Yes / No Effective Date File Name No Information Encounters Encounter Description Practice Location Reason(s) For Visit Diagnoses Date Provider Providers Copied on Encounter [facility], [address] [place] [address] [address], [place], [place], [id number], [place] tel:[phone] [facility] No Information 1201 0 [facility] [address] [facility], [address], [id number] , [place]. tel:[phone] Consulting Provider: Lucreica Barboza, [address] [place] [address], [address]. tel:[phone] [facility], [address] [place] [address] [address], [place], [place], [id number], [place] tel:[phone] [facility] No Information 8-200 8 [facility] [address] [facility], [address], [id number] , [place]. tel:[phone] Consulting Provider: [place], [address]. tel:[phone] [employer], [address], [place], [place], [id number], [place] tel:[phone] [facility] No Information 8 [facility], [address], [place], [place], [id number] , [place]. tel: [phone] Referring Provider: Jewel Brewer MD, [address] [place] [address], [address]. tel:[phone] g Provider: Jina Mendoza, [address] [place], [address]. tel:[phone] Family History Family Member Type Diagnosis Age At Onset No Information Payers Payer name Insurance type Covered constitution party ID Authoriza tion(s) No Information Social [...]
[2024-10-18 01:33] LABS: Basophils Absolute Auto 0.1 K/mm3 (0.0-0.1); Basophils Percent Auto 0.6 % (0.2-1.2); Eosinophils Absolute Auto 0.1 K/mm3 (0-0.3); Eosinophils Percent Auto 0.9 % (0-4.4); Hematocrit 39.9 % (37.0-47.0); Hemoglobin 13.2 g/dL (12.0-15.0); Immature Granulocyte Absolute 0.04 K/mm3 (0.00-0.031); Immature Granulocyte Percent A 0.4 % (0-0.5); Lymphocytes Absolute Auto 1.38 K/mm3 (0.9-3.2); Lymphocytes Percent Auto 15.5 % (18.3-44.2); Mean Corpuscular HGB Conc 33.1 g/dl (32-36); Mean Corpuscular Hemoglobin 29.7 pg (26-34); Mean Corpuscular Volume 89.7 fl (80-100); Monocytes Absolute Auto 0.9 K/mm3 (0.1-0.6); Monocytes Percent Auto 9.5 % (2.6-8.5); Neutrophils Absolute Auto 6.5 K/mm3 (1.3-6.7); Neutrophils Percent Auto 73.1 % (45.5-73.1); Platelet Count Result 256 k/mm3 (150-375); Red Blood Count 4.45 M/mm3 (4.2-5.4); Red Cell Distribution Width 13.8 % (11.5-14.5); White Blood Count 8.9 K/mm3 (4.5-10.0)
[2024-10-18 01:44] LABS: Alanine Aminotransferase 22 U/L (6-35); Albumin Level 3.8 g/dL (3.5-5.1); Alkaline Phosphatase 78 U/L (38-126); Anion Gap 11 mmol/L (4-12); Aspartate Amino Transferase 27 U/L (14-36); Bilirubin,Total 0.5 mg/dL (0.2-1.3); Blood Urea Nitrogen 29 mg/dL (7-17); Carbon Dioxide 25 mmol/L (22-30); Chloride 104 mmol/L (98-107); Estimated Glomerular Filt Rate > 60; Glucose 105 mg/dL (65-110); Potassium 3.7 mmol/L (3.4-5.0); Sodium 140 mmol/L (137-145)
[2024-10-18] MEDS: MORPHINE SULFATE (*CRX) 4 MG/ML INJ IV PUSH (01:59)
[2024-10-18] MEDS: ONDANSETRON INJ 4 MG/2 ML VIAL IV PUSH ×2 (01:59→04:24)
[2024-10-18] MEDS: HYDROmorphone HCL INJ (*CRX) 1 MG/ML SYR 0.5 MG IV PUSH (03:31)
--- NOTE | 2024-10-18 03:36 | PC.NURSE ---
pt refusing urine sample at this time. pt states, I peed when I got here. I do not have anymore urine left at this time. this rn educated patient on importance of having a urine specimen. pt verbalized understanding. pt visitor requesting fluid bolus for patient at this time. this rn explained no order for fluid bolus at this time. pt refusing to attempt to urinate at this time. edp aware.
[2024-10-18 04:27] LABS: Add Urine Microscopic? YES; Appearance Urine Clear (Clear); Bacteria Urine None Seen /hpf; Bilirubin Urine Negative (Negative); Blood Urine 3+ (Negative); Color Urine Yellow (Yellow); Glucose Urine UA Negative (Negative); Ketones Urine 1+ mg/dL (Negative); Leukocyte Esterase Ur Trace LEU/UL (Negative); Nitrate Urine Negative (Negative); Non Pathogenic Casts 0-2; Protein Urine Trace mg/dL (Negative); RBC Urine >100 /hpf (0-2); Specific Grav Ur 1.015 (1.001-1.035); Squamous Epithelial Cell Urine None Seen /hpf (Few); Urobilinogen Urine 0.2 mg/dL (<2.0); pH Urine 5.5 (5.0-9.0)
--- NOTE | 2024-10-18 06:58 | ADMGEN ---
This patient, Tasia Raya, was admitted to [facility] Surg Room 324-02. Patient/family oriented to hospital policies and general routines including ID bracelet, bed and alarms, visiting hours, pain management, procedures, bathroom and other care routines, personal items, smoking policy, room service/diet, and visiting hours. Information on how to activate the Rapid Response Team has been discussed. Patient/Family are encouraged to report perceived risks to care and to ask questions if they do not understand what they are told or what they should do.
--- NOTE | 2024-10-18 08:07 | PM.IMHP ---
H&P: HPI History of Present Illness Date/Time: 10/18/24 08:07 Chief Complaint: Right flank pain Narrative: Tasia Raya is a 78 year old female with pmh of nephrolithiasis who presented with an unclear duration of right flank pain (patient unable to fully describe duration - states at least a few days, perhaps greather than one week). She denies chest pain, shortness of breath, or fevers/chills. She has not had nausea or vomiting. She has had similar symptoms in the past with left ureteral stent placement in 2021. She presented to the ED with the symptoms described above and urological consultation was obtained. She was given IV ceftriaxone and culture of urine collected. She was admitted for further management per hospitalist service with urology consulting. Review of Systems Review of Systems: All systems reviewed & are unremarkable except as noted in HPI and below PMFSH Past Medical History Medical History History of hyperlipidemia Social History Social History Smoking status: Never smoker Alcohol intake: never Substance use: never Do You Feel Safe in your Home?: Yes Lack of Transportation: No Lack of Food: Never True Current Housing: I Have Housing Concerned About Future Housing: No Difficulty Paying Gas/Electric Bills: No Difficulty Paying for Meds: No Currently Unemployed: No Education: High School Diploma/GED Difficulty w/ Childcare or Family Care: No Living arrangements: with family Spiritual care concerns: No Meds Home Medications and Allergies Home Medications ?Medication ?Instructions ?Recorded ?Confirmed ?Type tamsulosin 0.4 mg capsule 0.4 mg PO HS 11/08/21 10/18/24 History celecoxib 200 mg capsule 200 mg PO QHS 10/18/24 10/18/24 History cholecalciferol (vitamin D3) 125 5,000 unit PO BID 10/18/24 10/18/24 History mcg (5,000 unit) tablet (Vitamin D3) cyanocobalamin (B12)-cobamamide 1 harry sublingual DAILY 10/18/24 10/18/24 History 5,000 mcg-100 mcg sublingual lozenge (B12) donepezil 10 mg tablet 10 mg PO QHS 10/18/24 10/18/24 History montelukast 10 mg tablet 10 mg PO DAILY 10/18/24 10/18/24 History omega-3 fatty acids 1,000 mg PO BID 10/18/24 10/18/24 History ondansetron 4 mg disintegrating 4 mg PO Q8H PRN nausea and vomiting 10/18/24 10/18/24 History tablet oxycodone-acetaminophen 5 mg-325 1 tablet PO Q6H PRN pain 10/18/24 10/18/24 History mg tablet thiamine HCl (vitamin B1) 100 mg 100 mg PO QHS 10/18/24 10/18/24 History capsule vitamins A,C,I-twkb-dqaxuu 2,148 1 tablet PO BID 10/18/24 10/18/24 History mcg-113 mg-45 mg-17.4 mg tablet (PreserVision AREDS) Allergies Allergy/AdvReac Type Severity Reaction Status Date / Time amoxicillin Allergy Unknown Blistery Verified 10/18/24 01:25 Rash, GOOFY clavulanic acid Allergy Unknown Blistery Verified 10/18/24 01:25 Rash, GOOFY fentanyl AdvReac Severe ITCHEY RASH Verified 10/18/24 01:25 Vital Signs Vital Signs - 24 hr 10/18/24 01:19 10/18/24 01:26 10/18/24 02:03 Temperature 97.9 F 98.6 F Pulse Rate 77 73 70 Respiratory Rate 20 17 16 Blood Pressure 173/78 H 167/84 H 160/67 H Pulse Oximetry 98 98 96 Oxygen Delivery Room Air 10/18/24 02:34 10/18/24 03:47 10/18/24 05:20 Temperature Pulse Rate 76 70 67 Respiratory Rate 16 16 18 Blood Pressure 162/65 H 129/54 L 147/73 H Pulse Oximetry 98 100 91 Oxygen Delivery 10/18/24 06:20 10/18/24 06:45 Temperature 97.3 F L Pulse Rate 68 69 Respiratory Rate 18 18 Blood Pressure 137/66 138/58 L Pulse Oximetry 96 99 Oxygen Delivery Exam Narrative: GENERAL APPEARANCE: Appears to be in no acute distress. HEAD: normocephalic atraumatic EYES: PERRL, EOMI. Vision grossly intact. ENT: Hearing grossly intact, no nasal discharge NECK: Neck supple, trachea midline. CARDIAC: Normal S1/S2. Rhythm is regular. No murmurs, rubs, or gallops. No cyanosis or pallor. Extremities are warm and well perfused. LUNGS: Clear to auscultation without rales, rhonchi, wheezing or diminished breath sounds. Respirations even and unlabored. ABDOMEN: BS positive x 4 quadrants. Soft, nondistended, nontender. No guarding or rebound. MSK: No joint tenderness/swelling, fair strength in all extremities. PERIPHERAL VASCULAR: Peripheral pulses palpable. Normal perfusion, cap refill <2 seconds. No edema. NEURO: Follows commands. No focal deficits. SKIN: Pershing without lesions or eruptions. PSYCH: Stable, no paranoia or delusional thinking. H&P: Results Labs Labs: Short CBC 10/18/24 Range/Units 01:27 WBC 8.9 (4.5-10.0) K/mm3 Hgb 13.2 (12.0-15.0) g/dL Hct 39.9 (37.0-47.0) % Plt Count 256 (150-375) k/mm3 BMP 10/18/24 01:27 Sodium 140 Potassium 3.7 Chloride 104 Carbon Dioxide 25 BUN 29 H Creatinine 0.78 Glucose 105 Calcium 9.0 Liver Function 10/18/24 Range/Units 01:27 Total Bilirubin 0.5 (0.2-1.3) mg/dL AST 27 (14-36) U/L ALT 22 (6-35) U/L Alkaline Phosphatase 78 (38-126) U/L Albumin 3.8 (3.5-5.1) g/dL Urine 10/18/24 Range/Units 04:15 Urine Color Yellow (Yellow) Urine Appearance Clear (Clear) Urine pH 5.5 (5.0-9.0) Ur Specific [place] 1.015 (1.001-1.035) Urine Protein Trace (Negative) mg/dL Urine Glucose (UA) Negative (Negative) mg/dL Assessment and Plan Assessment and plan (1) Hydroureteronephrosis: Code(s): N13.30 - Unspecified hydronephrosis Status: Acute Assessment and Plan: 10/18: - Patient with right ureteral stone and hydropnephrosis with hx of nephrolithiasis and plan for urological intervention today. - Renal function is stable. If tolerating diet postoperatively recommend dc ivf. Plan Tasia Raya is a 78 year old female presenting with right ureteral stone and hydropnephrosis with plan for urological intervention today. Labwork and renal function are stable. Patient has history of similar. Once stable postoperatively likely discharge at that time. Quality VTE Prophylaxis VTE prophylaxis: pharmacologic ordered (Start 10/19/24) Hospitalist [facility] Advance Care Plan I have confirmed that the patient's Advanced Care Plan is present, code status is documented, or surrogate decision maker is listed in patient medical record.: Yes Medication Reconciliation I have utilized all available resources to obtain, update and review the patients current medications (includes all prescriptions, OTC, herbals, cannabis, and nutritional supplements).: Yes
--- NOTE | 2024-10-18 08:19 | P.CONUR_ITS ---
Assessment and Plan Assessment and plan (1) Hydroureteronephrosis: Code(s): N13.30 - Unspecified hydronephrosis Status: Acute Plan she has a right ureteral stone with hydronephrosis. she has bilateral nonobstructive renal stones. There is no clinical signs of infection at her on the OR schedule today for cystoscopy, right retrograde pyelogram, right ureteroscopy, holmium laser lithotripsy, stone extraction and stent placement. She understands risks of bleeding, infection, damage to the urinary tract, inability to remove the stone. There is no clinical signs of infection. If all goes well she can be discharged home at any time the discretion of the primary team Urology Consult Note HPI Date Seen: 10/18/24 Requesting Physician: Evelina Branham MD Primary Care Provider: Jolanta Castano MD Consult Narrative Narrative: Tasia Raya is a 78 year old female she was an outside hospital on Friday for flank pain. She was diagnosed with a right ureteral stone. She was sent home on pain medication. She did reasonably well. She was seen in the office last week. They are attempting to schedule a procedure for tomorrow. She had recurrent pain last night and this morning. She re-presented to the emergency room. CT scan was reperformed which documented the right mid ureteral stone. There was hydronephrosis proximal stone. There is bilateral nonobstructing renal stones. Stones visible on KUB. There is no clinical signs of infection. Review of Systems 2 Review of Systems: All systems reviewed & are unremarkable except as noted in HPI and below PMFSH Past Medical History Medical History History of hyperlipidemia Social History Social History Smoking status: Never smoker Alcohol intake: never Substance use: never Do You Feel Safe in your Home?: Yes Lack of Transportation: No Lack of Food: Never True Current Housing: I Have Housing Concerned About Future Housing: No Difficulty Paying Gas/Electric Bills: No Difficulty Paying for Meds: No Currently Unemployed: No Education: High School Diploma/GED Difficulty w/ Childcare or Family Care: No Living arrangements: with family Spiritual care concerns: No Meds Home Medications and Allergies Home Medications ?Medication ?Instructions ?Recorded ?Confirmed ?Type tamsulosin 0.4 mg capsule 0.4 mg PO HS 11/08/21 10/18/24 History celecoxib 200 mg capsule 200 mg PO QHS 10/18/24 10/18/24 History cholecalciferol (vitamin D3) 125 5,000 unit PO BID 10/18/24 10/18/24 History mcg (5,000 unit) tablet (Vitamin D3) cyanocobalamin (B12)-cobamamide 1 harry sublingual DAILY 10/18/24 10/18/24 History 5,000 mcg-100 mcg sublingual lozenge (B12) donepezil 10 mg tablet 10 mg PO QHS 10/18/24 10/18/24 History montelukast 10 mg tablet 10 mg PO DAILY 10/18/24 10/18/24 History omega-3 fatty acids 1,000 mg PO BID 10/18/24 10/18/24 History ondansetron 4 mg disintegrating 4 mg PO Q8H PRN nausea and vomiting 10/18/24 10/18/24 History tablet oxycodone-acetaminophen 5 mg-325 1 tablet PO Q6H PRN pain 10/18/24 10/18/24 History mg tablet thiamine HCl (vitamin B1) 100 mg 100 mg PO QHS 10/18/24 10/18/24 History capsule vitamins A,C,A-ifsh-dpgtmy 2,148 1 tablet PO BID 10/18/24 10/18/24 History mcg-113 mg-45 mg-17.4 mg tablet (PreserVision AREDS) Allergies Allergy/AdvReac Type Severity Reaction Status Date / Time amoxicillin Allergy Unknown Blistery Verified 10/18/24 01:25 Rash, GOOFY clavulanic acid Allergy Unknown Blistery Verified 10/18/24 01:25 Rash, GOOFY fentanyl AdvReac Severe ITCHEY RASH Verified 10/18/24 01:25 Vital Signs Vital Signs - 24 hr 10/18/24 01:19 10/18/24 01:26 10/18/24 02:03 Temperature 97.9 F 98.6 F Pulse Rate 77 73 70 Respiratory Rate 20 17 16 Blood Pressure 173/78 H 167/84 H 160/67 H Pulse Oximetry 98 98 96 Oxygen Delivery Room Air 10/18/24 02:34 10/18/24 03:47 10/18/24 05:20 Temperature Pulse Rate 76 70 67 Respiratory Rate 16 16 18 Blood Pressure 162/65 H 129/54 L 147/73 H Pulse Oximetry 98 100 91 Oxygen Delivery 10/18/24 06:20 10/18/24 06:45 Temperature 97.3 F L Pulse Rate 68 69 Respiratory Rate 18 18 Blood Pressure 137/66 138/58 L Pulse Oximetry 96 99 Oxygen Delivery Exam 2 Const: General: cooperative, healthy appearing, alert, awake and Physically active; No anxious Nutritional Appearance: average body habitus O rientation/consciousness: patient oriented x3 Limitations: no limitations HENMT: Head: normal to inspection Eyes: General: appearance normal, both eyes and all related structures Neck: Neck: normal visual inspection and full ROM Chest: Chest palpation & inspection: normal inspection of the chest Resp: Effort & Inspection: normal respiratory effort, able to speak in complete sentences and no cough GI: Inspection: normal to inspection Skin: General skin exam: normal color and no rashes or lesions noted L esions: no lesions Neuro: General: patient oriented x3 Extrem: General: normal to inspection and full ROM Psych: Appearance: grossly normal Results Labs 10/18/24 01:27 10/18/24 01:27 Labs: Short CBC 10/18/24 Range/Units 01:27 WBC 8.9 (4.5-10.0) K/mm3 Hgb 13.2 (12.0-15.0) g/dL Hct 39.9 (37.0-47.0) % Plt Count 256 (150-375) k/mm3 BMP 10/18/24 01:27 Sodium 140 Potassium 3.7 Chloride 104 Carbon Dioxide 25 BUN 29 H Creatinine 0.78 Glucose 105 Calcium 9.0 Liver Function 10/18/24 Range/Units 01:27 Total Bilirubin 0.5 (0.2-1.3) mg/dL AST 27 (14-36) U/L ALT 22 (6-35) U/L Alkaline Phosphatase 78 (38-126) U/L Albumin 3.8 (3.5-5.1) g/dL Urine 10/18/24 Range/Units 04:15 Urine Color Yellow (Yellow) Urine Appearance Clear (Clear) Urine pH 5.5 (5.0-9.0) Ur Specific [place] 1.015 (1.001-1.035) Urine Protein Trace (Negative) mg/dL Urine Glucose (UA) Negative (Negative) mg/dL
--- NOTE | 2024-10-18 08:24 | WPDHPUPDATE1 ---
History and Physical Update Update Date/Time: 10/18/24 08:24 History and Physical has been reviewed, including an updated exam of the patient. There are NO changes in the patient's condition. Risks, benefits, and alternatives have been discussed and questions answered. Patient agrees to proceed with procedure.
[2024-10-18] MEDS: LACTATED RINGERS 1,000 ML 100 ML IV CONT (12:08)
[2024-10-18] MEDS: LACTATED RINGERS 1,000 ML 30 ML IV CONT (12:30)
--- NOTE | 2024-10-18 12:45 | P.PNAN_ITS ---
Anes - Eval Final PreProcedure Day of Procedure 10/18/24 12:45 Patient weight: obese Heart: regular rate and rhythm Lungs: clear to auscultation Airway: Mallampati scale class II Neurological: alert and oriented Last oral intake: >/= 8 hours ASA classification: III Emergent: no Anesthetic plan: proceed Anesthesia type and monitoring: general LMA and standard monitoring Results Review: All pre-operative results and documents have been reviewed as part of the pre- operative evaluation. Informed Consent: The patient's anesthetic plan and its attendant risks and benefits were discussed with the patient/family/POA. Questions were solicited and answers provided to the satisfaction of the patient/family/POA.
[2024-10-18] MEDS: LIDOCAINE 2% GEL UROJET 10 ML PKG MUCOUS MEM (13:06)
--- NOTE | 2024-10-18 13:32 | P.OP_ITS ---
Procedure Note - Detailed Date of Procedure 10/18/24 Pre-op Diagnosis Right ureteral stone Post-op Diagnosis Same Procedure Performed Cystoscopy, right retrograde pyelogram, right ureteroscopy with stone extraction, right stent placement Surgeon Jan Franklin MD Anesthesia General Indications Along with a right ureteral stone he has failed conservative management. She presents for ureteroscopy. Understands risks of bleeding, infection, damage to urinary tract, inability remove the stone. She agrees to proceed Findings Uncomplicated stone extraction Description of Procedure She was correctly identified. Informed consent obtained. She was from the operating room. She was given general anesthesia. She was placed in dorsal lithotomy position. She was prepped and draped sterile fashion. She was a lready on appropriate antibiotics. A time-out was performed. Cystoscopy revealed lower appearing bladder without abnormalities. No tumors. No stones. No significant trabeculations. I did a gentle retrograde pyelogram on the right. There was hydronephrosis proximal to a filling defect in the mid ureter. I placed a guidewire into the kidney. I dilated the ureter the 810 dilator. I then performed rigid ureteroscopy. The stone was encountered. It was not just 1 stone it was actually 2-3 smaller stones as a conglomerate. I was able to grasp the larger stone with a basket. I was able to extract that larger stone in doing so I was able to pull down to the other stone fragments along with me. I re-examined the ureter. I was able to get the rigid ureteral scope all the way to renal pelvis. No additional stones were seen. There was some redness and irritation at the ureter at the previous site of stone impaction. I opted to leave ureteral stent I loaded a 4.8 variable length stent over wire. Proximal coil in the upper pole kidney. Distal coil in the bladder. The bladder was drained. She was awakened transferred to PACU in stable condition Implants Ureteral stent Estimated Blood Loss 0 Drains No Packing No Pathology Yes (Stone) Complications No immediate complications Condition Stable Disposition PACU
--- NOTE | 2024-10-18 15:55 | P.DS_ITS ---
DS: Admitting Diagnosis Discharge Date 10/18/24 Admitting Diagnosis Right flank pain, right ureteral stone, hydronephrosis DS: Discharge Diagnosis Discharge Diagnosis (1) Hydroureteronephrosis: Code(s): N13.30 - Unspecified hydronephrosis Status: Acute Assessment and Plan: - s/p procedural intervention - urology cleared for discharge. - Currently doing well, up and ambulating, family at bedside. - Requests discharge, feels steady and stable to do so. (2) Urinary tract obstruction by kidney stone: Code(s): N20.0 - Calculus of kidney; N13.8 - Other obstructive and reflux uropathy Status: Acute Assessment and Plan: f/u one week with MD Glover. Plan F/U urology one week. DS: Summary Hospital Course Reason for hospitalization: Right flank pain, right ureteral stone, hydronephrosis Hospital Course: Tasia Raya presented from home with right flank pain having failed o/p management of a right ureteral stone. Urology consulting and underwent intervention today as reflected in operative notes. Patient tolerated procedure well. Her renal function was stable when arriving and remains so. Urology reports no clinical signs of infection. She will have further outpatient f/u with Dr. Glover. We will avoid unnecessary abx continuation with instructions to f/u sooner if any fevers, chills, or signs of infection. On day of admit/discharge patient is doing well, stable vs, physical examination, and doing well postoperatively. She requests discharge which appears reasonable and has been cleared from a urology standpoint. Further outpatient f/u will be arranged. Status at Discharge Functional status at discharge: independent ambulation Overall status at discharge: patient is back to baseline Time Spent with Patient Time attestation: Total time spent providing and/or coordinating discharge services: Time spent: Greater than 30 minutes Exam Narrative: Please see admission H/P for today's physical examination. DS: Data Data Completed and Pending Pending studies at discharge: Pending at discharge 10/18/24 13:24 Surgical [PTH] Routine Labs on day of discharge: Labs from last 24 hours 10/18/24 10/18/24 04:15 01:27 WBC 8.9 RBC 4.45 Hgb 13.2 Hct 39.9 MCV 89.7 MCH 29.7 MCHC 33.1 RDW 13.8 Plt Count 256 MPV 9.0 Immature Gran % (Auto) 0.4 Neut % (Auto) 73.1 Lymph % (Auto) 15.5 L [place] % (Auto) 9.5 H Eos % (Auto) 0.9 Baso % (Auto) 0.6 Lymph # (Auto) 1.38 [place] # (Auto) 0.9 H Eos # (Auto) 0.1 Baso # (Auto) 0.1 Abs Immat Gran (auto) 0.04 H Absolute Neuts (auto) 6.5 Absolute Nucleated RBC 0.000 Nucleated RBC % 0.0 Sodium 140 Potassium 3.7 Chloride 104 Carbon Dioxide 25 Anion Gap 11 BUN 29 H Creatinine 0.78 Estim Creat Clear Calc Not Reportable Estimated GFR > 60 Glucose 105 Calcium 9.0 Total Bilirubin 0.5 AST 27 ALT 22 Alkaline Phosphatase 78 Total Protein 7.0 Albumin 3.8 Urine Color Yellow Urine Appearance Clear Urine pH 5.5 Ur Specific [place] 1.015 Urine Protein Trace Urine Glucose (UA) Negative Urine Ketones 1+ H Ur Blood (Man) 3+ H Urine Nitrate Negative Urine Bilirubin Negative Urine Urobilinogen 0.2 Leukocyte Esterase Rfl Trace H Urine RBC >100 H Urine WBC 11-20 H Ur Squamous Epith Cells None seen Urine Bacteria None seen Urine Casts 0-2 Discharge Plan Discharge Attending physician on discharge: Kwabena Hernandez Consulting providers: Mitesh Alex Discharging Clinician: Kwabena Hernandez Anticipated Discharge Date/Time: 10/18/24 16:03 Patient Disposition: Home, Self-Care Activity: may shower Diet: as tolerated Discharge Instructions: - Follow up with your primary care provider later this week if possible. - Follow up with Dr. Glover in one week. - Take all medications as prescribed. - If anything other than steady improvement please contact your PCP or seek evaluation urgently. Specifically, any fevers, chills, or signs of urinary tract infection should be evaluated promptly. - Please follow all discharge directions as written, call for any questions or need for clarification. - Thank you for [facility] for your healthcare needs. Patient Instructions: Antibiotic Form Patient Language: Arabic Stand Alone Forms: General Discharge Information Follow-up/Referrals: Go Glover MD [Physician] - (F/U one week.) Discharge Medications: Continued tamsulosin 0.4 mg capsule 0.4 mg PO HS celecoxib 200 mg capsule 200 mg PO QHS donepezil 10 mg tablet 10 mg PO QHS oxycodone-acetaminophen 5-325 mg tablet 1 tablet PO Q6H PRN (Reason: pain) Rx Instructions: Take 1 to 2 pills montelukast 10 mg tablet 10 mg PO DAILY ondansetron 4 mg tablet,disintegrating 4 mg PO Q8H PRN (Reason: nausea and vomiting) PreserVision AREDS 2,148 mcg-113 mg-45 mg-17.4mg tablet 1 tablet PO BID Rx Instructions: administer with AM and PM meals omega-3 fatty acids Capsule 1,000 mg PO BID cholecalciferol (vitamin D3) [Vitamin D3] 125 mcg (5,000 unit) tablet 5,000 unit PO BID B12 5,000-100 mcg lozenge 1 harry sublingual DAILY thiamine HCl (vitamin B1) 100 mg capsule 100 mg PO QHS Date of admission: 10/18/24 05:52 Primary Care Provider: Jolanta Castano Admitting Provider: Evelina Branham Attending physician on admission: Evelina Branham Condition: Stable
== END 2024-10-18 16:35 | disposition home or self-care (01) ==
LOC: ANHED 05:58 → ANH3MEDSUR 06:18
PROVIDERS: Urology; Admitting Provider General Practice; Emergency Provider Student in an Organized Health Care Education/Training Program; PCP Family Medicine; Visit Provider General Practice
PROC: (CPT 52352; principal; 2024-10-18 14:30)
DX: N13.2 Hydronephrosis with renal and ureteral calculous obstruction (principal); E78.5 Hyperlipidemia, unspecified; E66.9 Obesity, unspecified; Z68.33 Body mass index [BMI] 33.0-33.9, adult; Z79.899 Other long term (current) drug therapy
CPT/HCPCS: 52352; 52332; 36415; 74176; 74420; 80053; 81001; 82365; 85025; 87086; 88300; 96365; 96375; 96376; 99285; C1769; C2617; G0378; J0696; J1100; J1171; J2003; J2270; J2405; J2704; J3010; J7120; Q9966